=== PATIENT | female | born 1930 | race Caucasian/White ===

== ENCOUNTER 2016-08-07 09:44 | Emergency (ER) | payer MEDICARE, OTHER ==
[~2016-08-07] VITALS: Ht 167.6 cm; Wt 56.4 kg
[~2016-08-07 09:44] MED LIST: CA C1TAB77 PO; COZ25 PO; DIGO125T PO; DSS100 PO; FURO40TA PO; K20 PO; LOM PO; MVI PO; TOPR25T PO; WARF6TAB2 PO
[2016-08-07 09:50] VITALS: BP 97/61; PULSE 85; RESP 10; O2SAT 87
--- NOTE | 2016-08-07 10:02 | ED.REPORT ---
HPI-Chest Pain 40 and Over Date of Service Aug 07, 2016 ED Provider: Homer Shelby MD An 85 year old female with a history of hypotension, hyperlipidemia, COPD, sleep apnea, squamous cell carcinoma, and CHF s/p pacemaker placement presents to the ED accompanied by her daughter with chest pain onset 0400 this morning. The pain lasted 5 minutes with radiation down her left arm and returned for less than five minutes at 0600. She also reports chills and SOB with exertion this morning. The patient was ill with a cough, fever, congestion, and sore throat last week and was placed on cephalexin and prednisone which relieved her symptoms. The patient denies diaphoresis, headache, abdominal pain, nausea, vomiting, diarrhea, or fever in the last three days. Her heart catheterization test in November 2012 visualized no obstructive disease. Nursing Notes Stated Complaint: CHEST PAIN/SOB Chief Complaint: Chest Pain Nursing Notes Reviewed: Yes Allergies: Coded Allergies: shellfish derived (Verified Allergy, Unknown, anaphylaxis, 08/07/16) enalapril (Verified Adverse Reaction, Mild, Cough, 07/17/13) Scheduled Ca Carb/Vit D3/Mag Ox/Zn Oxide (Sonido Mag Zinc + D3 Tablet) 1 Each Tablet 1 EACH PO DAILY Digoxin-Expunged Drug, Do Not Renew! (Digoxin-Expunged Drug, Do Not Renew!) 125 Mcg Tablet 125 MCG PO Q48 DECREASED DOSE Diphenoxylate/Atr-Expunged, Do Not Renew! (Diphenoxylate/Atr-Expunged, Do Not Renew!) 2.5 Mg Tablet 2.5 MG PO PRN Docusate Sod-Expunged Drug, Do Not Renew! (Docusate Sod-Expunged Drug, Do Not Renew!) 100 Mg Capsule 100 MG PO DAILY Furosemide-Expunged Drug, Do Not Renew! (Lasix-Expunged Drug, Do Not Renew!) 40 Mg Tablet 40 MG PO BID Losartan-Expunged Drug, Do Not Renew! (Losartan-Expunged Drug, Do Not Renew!) 25 Mg Tablet 25 MG PO DAILY Metoprolol Suc-Expunged Drug, Do Not Renew! (Metoprolol Suc-Expunged Drug, Do Not Renew!) 25 Mg Tber 25 MG PO DAILY Potassium Chl-Expunged Drug, Do Not Renew! (P-HAL-Jwqmyaiz Drug, Do Not Renew!) 20 Meq Tabsr 20 MEQ PO BIDWM GIVE WITH FOOD Therapeutic Multivit/Minerals-Expunged Drug, (Therapeutic Multivit/Minerals- Expunged Drug,) 1 Ea Tab 1 TAB PO DAILY Warfarin Sodium Inactive Drug Do Not Use (Coumadin Inactive Drug Do Not Use) 6 Mg Tablet 6 MG PO DAILY 1700 (5 PM) DAILY General Time Seen by MD: 10:01 Chief Complaint Chest pain Hx Obtained From: Patient, Daughter Arrived By: Walk-in Sudden in Onset?: Yes Onset Occurred: 5 - 8 hours ago Symptom Duration: 1 - 15 minutes Location: : Chest left: Chest right Quality: Painful Radiation: : Arm left Severity: Current: Moderate Severity: Maximum: Moderate Associated with: Reports: Cough, non-productive, Recent viral symptoms, Shortness of Breath, Denies: Fever, Nausea, Vomiting Pertinent Negative: Relieved by nothing Context Related History: Reports: Congestive heart failure Recent Healthcare: No recent doctor visit Similar Sx Previous: Yes Past Medical History Past Medical History CHF Atrial fibrillation on Warfarin Hypotension Hyperlipidemia Mild COPD Sleep apnea Squamous cell carcinoma Past Surgical History Pacemaker placement Smoking History Unknown if Ever Smoker Social History Other Social History: Good social support Ambulatory Status Independent Review of Systems Constitutional: Reports: Chills, Denies: Fever Respiratory: Reports: Non-productive cough (resolved), Shortness of breath Cardiovascular: Reports: Chest pain GI: Denies: Abdominal pain, Diarrhea, Nausea, Vomiting Skin: Denies Diaphoresis Neurologic: Denies: Headache Complete sys rev & neg: except as marked. Ears / Nose / Throat: Reports: Nasal congestion (resolved), Sore throat ( resolved) Physical Exam Initial Vital Signs Vital Signs (First) Date Time Temp Pulse Resp B/P Pulse Ox O2 Delivery O2 Flow Rate FiO2 08/07/16 09:50 36.2 85 10 97/61 87 Room Air Head / Eyes: Atraumatic, Normocephalic ENT: Conjunctiva normal, No scleral icterus Neck: Supple, Full range of motion Skin: Warm, Dry, No cyanosis Neurologic: Alert, Oriented, Nonfocal Psychiatric: Mood/affect normal, Behavior normal, Normal thought content General/Constitutional: Awake, Alert, No acute distress Respiratory / Chest: Breath sounds NL, Breath sounds = bilat, No respiratory distress Cardiovascular: Regular rhythm, Heart sounds NL Heart Rate / Rhythm: Positive: Bradycardia Lower Ext Edema: Positive: Bilateral 2+ Interpretation & Diagnostics Lab Results Interpretation Result Diagram: 08/07/16 1050 08/07/16 1050 Test 08/07/16 10:50 08/07/16 11:00 White Blood Count 8.3th/mm3 (3.8-10.1) Red Blood Count 4.31mil/mm3 (3.90-5.20) Hemoglobin 13.3g/dL (12.0-15.6) Hematocrit 40.9% (35.0-46.0) Mean Corpuscular Volume 94.9fL (81-100) Mean Corpuscular Hemoglobin 30.9pg (27.0-35.0) Mean Corpuscular Hemoglobin Concent 32.5% (32.0-37.0) Red Cell Distribution Width 14.5% (12.3-15.4) Platelet Count 167bil/L (150-400) Neutrophils (%) (Auto) 79.9% (40-74) Lymphocytes (%) (Auto) 11.6% (14-46) Monocytes (%) (Auto) 7.4% (4-12) Eosinophils (%) (Auto) 0.4% (0-5) Basophils (%) (Auto) 0.5% (0-3) Sodium Level 140mEq/L (134-144) Potassium Level 4.3mEq/L (3.5-5.2) Chloride Level 97mEq/L (97-108) Carbon Dioxide Level 26mmol/L (18-29) Blood Urea Nitrogen 30mg/dL (8-27) Creatinine 1.33mg/dL (0.57-1.00) Estimat Glomerular Filtration Rate 55mL/min (>59) Glucose Level 116mg/dL (60-99) Calcium Level 10.5mg/dL (8.5-10.1) Magnesium Level 2.3mg/dL (1.6-2.6) Total Bilirubin 1.5mg/dL (0.0-1.2) Aspartate Amino Transf (AST/SGOT) 30U/L (0-50) Alanine Aminotransferase (ALT/SGPT) 25U/L (0-32) Alkaline Phosphatase 102U/L (25-165) Troponin T 0.042ug/L (0.0-0.011) Pro-B-Type Natriuretic Peptide 80469jv/mL (0-738) Total Protein 7.4g/dL (6.4-8.4) Albumin 4.0g/dL (3.4-5.0) Hold Urine Received (Received) ECG Interpretation ECG Interpretation: Afib/flut and V-paced complexes rate 68 Nonspecific IVCD with LAD LVH with secondary repolarization abnormality Time: 10:33 Interpreted by: ED physician X-Ray Chest Interpretation Chest Xray Interpretation: IMPRESSION: 1. Prominent cardiomegaly redemonstrated. 2. Hyperinflation of the lungs suggestive of COPD. Recommend correlation clinically. No acute consolidation. Dictated by: Juan Ortiz M.D. on 08/07/2016 at 10:38 View: Portable, 1 view Interpretation / Wet Read by: Interpret - Radiologist Re-Eval/Medical Decision Source of Hx: Old records Time of Eval: 11:49 Patient Status: Condition improved Re-Evaluation/Progress Note: Discussed with patient and her daughter x-ray and lab results, diagnosis, and plan for discharge. Follow-up and return to the ER instructions given. Patient agrees with plan for care and all questions were addressed. Consultation : Referral / Consult Name: Saba De Guzman MD Consulted With: Cardiology Call Returned at: 11:44 Transport Medic: Will see in office Note: Dr. De Guzman suggests increasing torsemide from 30 mg daily to 40 mg daily but when I talked to the patient she said that she was only in fact taking 20 mg daily so I instructed her to increase it to [address] De Guzman will make arrangements for the patient to be seen in the clinic on the . Counseled Regarding: Diagnosis, Lab results, Need for follow-up, When/why to return to ED Discharge & Departure Primary Impression: Chest pain Chest pain type: unspecified Qualified Code: R07.9 - Chest pain, unspecified Additional Impression: CONGESTIVE HEART FAILURE NOS Disposition: Home Discharge Condition All VS Reviewed: Yes Condition: Stable Patient Instructions: Chest Pain (ED), Congestive Heart Failure (ED) Additional Instructions: Thank you for entrusting us with your care. Your exam today was reassuring. Increase your torsemide from 1 tablet daily (20 mg) to 1-1/2 tablets daily (30 mg). You have an appointment with Dr. De Guzman August 12 and her office will call you about this to let you know the specific time. Return to the ER with any new or worsening symptoms. Referrals: Kurtis Brand MD (PCP) Saba De Guzman MD Attestation Portions of this note were transcribed by Aura Morales. I, Dr. Shelby, personally performed the history, physical exam, and medical decision-making; I reviewed and confirmed the accuracy of the information in the transcribed note. Signed by: David Mckenna, 08/07/2016, 12:42 copies to: Kurtis Brand MD; Saba De Guzman MD, Kirk H MD Aug 07, 2016 10:02 AURA MORALES Aug 07, 2016 10:21
--- NOTE | 2016-08-07 10:39 | DRSVH ---
PROCEDURE: X-RAY CHEST ONE VIEW, PORTABLE ([id number]) INDICATIONS: Chest pain TECHNIQUE: One view of the chest was acquired. COMPARISON: [facility], XR CHEST 2VW, 12/19/2015, 17:36. [facility], CR, CHES T 1VW (PORTABLE), 05/08/2013, 14:08. FINDINGS: Surgical changes and devices: Left chest wall single lead AICD appears stable in position. Lungs and pleura: No pleural effusions or pneumothorax. Lungs are clear. There is hyperinflation o f the lungs redemonstrated. Mediastinum: Mediastinal contours appear unchanged. Heart size is prominently enlarged. Bones and chest wall: No suspicious bony lesions. Overlying soft tissues appear unremarkable. IMPRESSION: 1. Prominent cardiomegaly redemonstrated. 2. Hyperinflation of the lungs suggestive of COPD. Recommend correlation clinically. No acute cons olidation. Dictated by: Juan Ortiz M.D. on 08/07/2016 at 10:38 Approved by: Juan Ortiz M.D. on 08/07/2016 at 10:38
[2016-08-07 11:06] LABS: BASOPHILS % (AUTO) 0.5 % (0-3); EOSINOPHILS % (AUTO) 0.4 % (0-5); MONOCYTES % (AUTO) 7.4 % (4-12); Mean Corpuscular Hemoglobin 30.9 pg (27.0-35.0); Mean Corpuscular Volume 94.9 fL (81-100); NEUTROPHILS % (AUTO) 79.9 % (40-74); Platelet Count 167 bil/L (150-400)
[2016-08-07 11:37] LABS: Magnesium 2.3 mg/dL (1.6-2.6)
[2016-08-07 11:40] LABS: TROPONIN T 0.042 ug/L (0.0-0.011)
[2016-08-07 12:27] VITALS: BP 116/72; PULSE 78; RESP 16
[2016-08-26] MEDS ORDERED: TORS20TA3 PO (18:19)
[2016-08-26] MEDS ORDERED: [UNRECOGNIZED DRUG - CODE] PO (18:31)
[2016-08-26] MEDS ORDERED: WARF1TAB6 PO ×2 (18:31)
[2016-08-26] MEDS ORDERED: CHLORELLA PO (18:31)
[2016-08-26] MEDS ORDERED: METH850P PO (18:31)
[2016-08-26] MEDS ORDERED: CARB15DR74 OP (18:31)
[2016-08-26] MEDS ORDERED: NEBI2.5T5 PO (18:31)
[2016-08-26] MEDS ORDERED: CALC500T9 PO (18:31)
[2016-08-26] MEDS ORDERED: DIGO125T73 PO (18:33)
[2016-08-26] MEDS ORDERED: MULT-1018 PO (18:33)
== END 2016-08-07 12:29 | disposition home or self-care (01) ==
LOC: SED 09:44
DX: I50.9 Heart failure, unspecified (principal); R07.9 Chest pain, unspecified; I95.89 Other hypotension; E78.5 Hyperlipidemia, unspecified; Z95.0 Presence of cardiac pacemaker; Z85.89 Personal history of malignant neoplasm of other organs and systems; Z79.01 Long term (current) use of anticoagulants; Z88.8 Allergy status to other drugs, medicaments and biological substances; Z91.013 Allergy to seafood

== ENCOUNTER 2016-08-27 00:15 | Day surgery (SDC) | payer MEDICARE, OTHER ==
[~2016-08-27] VITALS: Ht 165.1 cm; Wt 54.5 kg
[~2016-08-27 00:15] MED LIST changes: -CA C1TAB77 PO; +CALC500T9 PO; +CARB15DR74 OP; +CHLORELLA PO; -COZ25 PO; -DIGO125T PO; +DIGO125T73 PO; -DSS100 PO; -FURO40TA PO; -K20 PO; -LOM PO; +METH850P PO; +MULT-1018 PO; -MVI PO; +NEBI2.5T5 PO; -TOPR25T PO; +TORS20TA3 PO; +WARF1TAB6 PO; -WARF6TAB2 PO; +[UNRECOGNIZED DRUG - CODE] PO
[2016-08-27] MEDS ORDERED: Vancomycin Inj 1,000 MG in IV Premix 1 EACH IV SCH (07:15)
[2016-08-27 11:06] LABS: BASOPHILS % (AUTO) 0.4 % (0-3); EOSINOPHILS % (AUTO) 2.5 % (0-5); MONOCYTES % (AUTO) 8.7 % (4-12); Mean Corpuscular Hemoglobin 30.6 pg (27.0-35.0); Mean Corpuscular Volume 94.7 fL (81-100); Platelet Count 179 bil/L (150-400)
[2016-08-27 11:07] VITALS: BP 101/65; PULSE 64; RESP 12; O2SAT 98
[2016-08-27 11:25] LABS: INR 2.13 ratio
--- NOTE | 2016-08-27 12:02 | NUR ---
GRACIE Patient admitted to [facility] at 1030 for existing ICD lead. Daughter at bedside. Patient denies pain. HL X 2 placed and labs sent. Consent in chart and verified. History and medications reviewed. Pre-procedure teaching done and questions answered.
[2016-08-27 14:00] VITALS: BP 107/59; PULSE 61; RESP 12; O2SAT 96
[2016-08-27 14:15] VITALS: BP 101/55; PULSE 58; RESP 16; O2SAT 95
[2016-08-27] MEDS ORDERED: Potassium Chloride 20 mEq SR Tablet ONE ×2 (14:15→14:21)
[2016-08-27] MEDS ORDERED: Potassium Chloride 20 mEq SR Tablet PO ONE (14:25)
[2016-08-27 14:30] VITALS: BP 104/55; PULSE 61; RESP 16; O2SAT 98
--- NOTE | 2016-08-27 15:29 | NUR ---
[facility] Patient to microbiological laboratory technician and venogram determined unable to complete procedure. No sedation given. Return to [facility] at 1400. Daughter at bedside. Patient ate lunch and 40meq KCL PO administered pr MD order. Discharge instructions reviewed with patient and daughter, written information given and questions answered. Home with daughter at 1530.
== END 2016-08-27 23:59 ==
LOC: SOUO 00:15
PROVIDERS: ATTEND Internal Medicine Cardiovascular Disease
DX: I42.0 Dilated cardiomyopathy (principal); Z53.9 Procedure and treatment not carried out, unspecified reason; Z79.01 Long term (current) use of anticoagulants; I48.2 Chronic atrial fibrillation; Z95.810 Presence of automatic (implantable) cardiac defibrillator; I44.7 Left bundle-branch block, unspecified
CPT/HCPCS: 36005; 36415; 75820; 80048; 85025; 85610; Q9967

== ENCOUNTER 2016-09-21 17:23 | Inpatient (IN) | payer MEDICARE, OTHER ==
[~2016-09-21] VITALS: Ht 162.6 cm; Wt 60.4 kg
[2016-09-21 17:46] VITALS: BP 96/55; PULSE 70; RESP 18; O2SAT 92
--- NOTE | 2016-09-21 18:09 | ED.REPORT ---
HPI-General Illness Date of Service Sep 21, 2016 ED Provider: Dr. Larry Russell M.D. An 85 year old female with a history of CHF, hypotension, hyperlipidemia, mild COPD, sleep apnea, squamous cell carcinoma, and atrial fibrillation on Warfarin s/p pacemaker ICD placement presents to the ED with worsened bilateral leg edema onset one month ago. The patient also reports intermittent shortness of breath and insomnia. She also developed a cough one month ago and was seen by her PCP who placed her on prednisone, with no relief. The patient has an upcoming appointment for subclavian venoplasty to enable addition of a subsequent pacer. Nursing Notes Stated Complaint: CONGESTIVE HEART FAILURE Chief Complaint: General Complaint Nursing Notes Reviewed: Yes Allergies: Coded Allergies: lisinopril (Verified Allergy, Severe, 09/21/16) iodine (Verified Allergy, Unknown, 09/21/16) shellfish derived (Verified Allergy, Unknown, anaphylaxis, 09/21/16) enalapril (Verified Adverse Reaction, Mild, Cough, 09/21/16) Scheduled Calcium Carbonate (Tums) 500 Mg Tab.chew 250 MG PO DAILY Digoxin (Digoxin) 125 Mcg Tablet 125 MCG PO QPM Multivitamin (Multi Vitamin Daily) 1 Each Tablet 1 EACH PO DAILY Nebivolol (Bystolic) 2.5 Mg Tablet 2.5 MG PO DAILY Torsemide (Torsemide) 20 Mg Tablet 40 MG PO DAILY Warfarin Sodium (Warfarin Sodium) 1 Mg Tablet 4.5 MG PO Wednesday & Wednesday Warfarin Sodium (Warfarin Sodium) 1 Mg Tablet 4 MG PO DAILY except Wednesday & Wednesday Scheduled PRN Ammonium Lactate (Ammonium Lactate) 140 Gm Cream..g. 1 APPLIC TOPICAL DAILY PRN PRN skin dryness Carboxymethylcellulose Sodium (Refresh Tears) 15 Ml Drops 15 ML OP Q2H PRN PRN dry eyes Diclofenac Gel (Diclofenac Gel) 100 Gm Tube 2 APPLIC TOPICAL QID PRN PRN arthritis To jaw for lock jaw Levalbuterol Tartrate (Levalbuterol Tartrate Hfa) 45 Mcg/Actuation Hfa.aer.ad 2 PUFFS IH Q4H PRN PRN For Shortness of Breath Methylcellulose (with Sugar) (Citrucel Powder) 850 Gm Powder 850 GM PO DAILY PRN PRN For Constipation General Time Seen by MD: 18:09 Chief Complaint Other (Bilateral Leg Edema ) Hx Obtained From: Patient Arrived By: Walk-in Onset Occurred: More than a week ago... (1 month) Symptom Duration: Since onset Severity: Current: No pain currently Severity: Maximum: No pain Associated with: Reports: Cough, Shortness of breath Pertinent Negative: Relieved by nothing Context Related History: Reports COPD, Reports Cancer Recent Healthcare: Recent doctor visit Similar Sx Previous: Yes Past Medical History Past Medical History CHF Atrial fibrillation on Warfarin Hypotension Hyperlipidemia Mild COPD Sleep apnea Squamous cell carcinoma Past Surgical History Pacemaker and ICD placement Smoking History Unknown if Ever Smoker Social History Other Social History: Good social support Ambulatory Status Independent Review of Systems Full Review of Systems Respiratory: Reports: Non-productive cough, Shortness of breath GI: Denies: Diarrhea, Vomiting Musculoskeletal: Reports: Extremity swelling (Bilateral legs ) Psychiatric: Reports: Insomnia Complete sys rev & neg: except as marked. Physical Exam Vital Signs Vital Signs Date Time Temp Pulse Resp B/P Pulse Ox O2 Delivery O2 Flow Rate FiO2 09/21/16 17:46 36.0 70 18 96/55 92 Room Air Initial VS: Reviewed Head / Eyes: Atraumatic Respiratory: Breath sounds normal, Clear to auscultation, No respiratory distress Abdomen / GI: Soft, Non-tender Skin: Warm, Dry Neurologic: Alert, Oriented, Nonfocal Psychiatric: Mood/affect normal, Behavior normal, Normal thought content General/Constitutional: Awake, Alert, No acute distress Distress / Hydration: Positive: Dehydration mild Skin dusky ENT: Airway patent Mouth: Positive: Mucous membranes dry Cardiovascular: Heart rate NL, Regular rhythm Heart Sounds / Murmur: Positive: Heart sounds diminished Lower Ext Edema: Positive: Bilateral 2+ Legs in compression garments bilaterally Interpretation & Diagnostics Lab Results Interpretation Result Diagram: 09/21/16 1810 09/22/16 0230 Test 09/21/16 18:10 09/21/16 19:24 White Blood Count 6.5th/mm3 (3.8-10.1) Red Blood Count 5.30mil/mm3 (3.90-5.20) Hemoglobin 15.6g/dL (12.0-15.6) Hematocrit 46.2% (35.0-46.0) Mean Corpuscular Volume 87.2fL (81-100) Mean Corpuscular Hemoglobin 29.4pg (27.0-35.0) Mean Corpuscular Hemoglobin Concent 33.8% (32.0-37.0) Red Cell Distribution Width 15.7% (12.3-15.4) Platelet Count 185bil/L (150-400) Neutrophils (%) (Auto) 71.4% (40-74) Lymphocytes (%) (Auto) 16.2% (14-46) Monocytes (%) (Auto) 9.7% (4-12) Eosinophils (%) (Auto) 2.0% (0-5) Basophils (%) (Auto) 0.5% (0-3) Prothrombin Time > 120.0sec (8.1-12.5) Prothromb Time International Ratio > 10.00ratio Total Bilirubin 3.3mg/dL (0.0-1.2) Aspartate Amino Transf (AST/SGOT) 81U/L (0-50) Alanine Aminotransferase (ALT/SGPT) 121U/L (0-32) Alkaline Phosphatase 114U/L (25-165) Pro-B-Type Natriuretic Peptide 74330dp/mL (0-738) Total Protein 6.9g/dL (6.4-8.4) Albumin 3.9g/dL (3.4-5.0) Thyroid Stimulating Hormone (TSH) 11.890uIU/mL (0.450-4.500) Hold Mckeon Top Tube Received (Received) Urine Color Yellow (YELLOW) Urine Appearance Clear (CLEAR,HAZY) Urine pH 5.0 (5.0-8.0) Urine Specific [place] 1.025 (1.003-1.035) Urine Protein Negativemg/dL (NEG,TRACE) Urine Glucose (UA) Negativemg/dL (NEGATIVE) Urine Ketones Negativemg/dL (NEGATIVE) Urine Occult Blood Negative (NEGATIVE) Urine Nitrite Negative (NEGATIVE) Urine Bilirubin Negative (NEGATIVE) Urine Urobilinogen Normalmg/dL (NORMAL) Urine Leukocyte Esterase Negative (NEGATIVE) Urine RBC 0-2/hpf (0-2) Urine WBC 0-5/hpf (0-5) Urine Epithelial Cells None/hpf (NONE-MOD) Urine Crystals None seen (NONE SEEN) Urine Bacteria Few/hpf (NONE-FEW) Urine Hyaline Casts None/lpf (NONE) Urine Granular Casts None seen (NONE SEEN) Urine Waxy Casts None seen (NONE SEEN) Urine Red Blood Cell Casts None seen (NONE SEEN) Urine White Blood Cell Casts None seen (NONE SEEN) Urine Mucus None seen (None Seen) Urine Trichomonas None seen (NONE SEEN) Urine Yeast None (NONE SEEN) Urinalysis Comment None Urine Culture Reflexed Not indicated ECG Interpretation ECG Interpretation: Afib/flut and V-paced complexes rate 60 Time: 19:24 Interpreted by: ED physician X-Ray Chest Interpretation Chest Xray Interpretation: IMPRESSION: Small left pleural effusion with adjacent atelectasis. Cardiomegaly Dictated by: Nolberto Campbell M.D. on 09/21/2016 at 19:45 View: Portable, 1 view Interpretation / Wet Read by: Interpret - Radiologist Re-Eval/Medical Decision Med Decision/Clinical Course 85-year-old with severe cardiomyopathy presents with increasing edema and shortness of breath. She was referred by her tree topper for admission. Plan is to see what can be done about her progressive failure, and consider about the insertion of her second pacemaker wire to allow AV sequential pacing. She is central volume dry at this point, with moderate edema of her thighs. She is unlikely to tolerate much diuresis. Discussed with Dr. Dawn, who will see her this morning. Source of Hx: Old records Time of Eval: 18:30 Patient Status: Condition improved Re-Evaluation/Progress Note: Discussed with patient and her x-ray and lab results, diagnosis, and plan for admit. Patient agrees with plan for care and all questions were addressed. Consultation #1: Referral / Consult Name: Jordi Reagan MD Consulted With: Hospitalist Call Returned at: 19:06 Transmission Repairer: Agrees with eval, Agrees with plan, Accepts admit Consultation #2: Referral / Consult Name: Zen Dawn MD Consulted With: Cardiology Call Returned at: 20:53 Transmission Repairer: Agrees with eval, Agrees with plan Counseled Regarding: Diagnosis, Lab results, Need for admission Discharge & Departure Primary Impression: CHF (congestive heart failure) Congestive heart failure type: unspecified congestive heart failure type Congestive heart failure chronicity: unspecified congestive heart failure chronicity Qualified Code: I50.9 - Heart failure, unspecified Additional Impression: Cardiomyopathy Disposition: ADMITTED TO HOSPITAL Discharge Condition All VS Reviewed: Yes Condition: Improved Referrals: Kurtis Brand MD (PCP) Zen Dawn MD, Yelena K MD Scribe Attestation Portions of this note were transcribed by Aura Morales. Dr. Drew Thomas, personally performed the history, physical exam, and medical decision-making; I reviewed and confirmed the accuracy of the information in the transcribed note. Signed by: David Mckenna, 09/22/2016, 02:50 copies to: Zen Dawn MD; Kurtis Brand MD; Saba De Guzman MD, Christopher W MD Sep 21, 2016 18:09 AURA MORALES Sep 21, 2016 18:21 Referral / Consult Name: Zen Dawn MD Consulted With: Cardiology Call Returned at: 20:53 Transmission Repairer: Agrees with eval, Agrees with plan Counseled Regarding: Diagnosis, Lab results, Need for admission Discharge & Departure Primary Impression: CHF (congestive heart failure) Congestive heart failure type: unspecified congestive heart failure type Congestive heart failure chronicity: unspecified congestive heart failure chronicity Qualified Code: I50.9 - Heart failure, unspecified Additional Impression: Cardiomyopathy Disposition: ADMITTED TO HOSPITAL Discharge Condition All VS Reviewed: Yes Condition: Improved Referrals: Kurtis Brand MD (PCP) Zen Dawn MD, Yelena K MD Scribe Attestation Portions of this note were transcribed by Aura Morales. Dr. Drew Thomas, personally performed the history, physical exam, and medical decision-making; I reviewed and confirmed the accuracy of the information in the transcribed note. Signed by: David Mckenna, 09/22/2016, 02:50 copies to: Zen Dawn MD; Kurtis Brand MD; Saba De Guzman MD, Christopher W MD Sep 21, 2016 18:09 AURA MORALES Sep 21, 2016 18:21
[2016-09-21 18:42] LABS: BASOPHILS % (AUTO) 0.5 % (0-3); MONOCYTES % (AUTO) 9.7 % (4-12); Mean Corpuscular Hemoglobin 29.4 pg (27.0-35.0); Mean Corpuscular Volume 87.2 fL (81-100); NEUTROPHILS % (AUTO) 71.4 % (40-74); Platelet Count 185 bil/L (150-400)
[2016-09-21 19:02] LABS: TROPONIN T 0.16 ug/L (0.0-0.011)
[2016-09-21] MEDS ORDERED: Senna-Docusate 8.6-50 mg Tablet PO PRN (19:20)
[2016-09-21] MEDS ORDERED: Ondansetron 2 mg/mL 2 mL Inj IVPUSH PRN (19:20)
[2016-09-21] MEDS ORDERED: Polyethylene Glycol (PEG) 17 Gm Powder PO PRN (19:20)
[2016-09-21] MEDS ORDERED: Alum-Mag Hydrox-Simeth 30 mL Suspension PO PRN (19:20)
--- NOTE | 2016-09-21 19:48 | DRSVH ---
PROCEDURE: X-RAY CHEST ONE VIEW, PORTABLE ([id number]) INDICATIONS: chf TECHNIQUE: One view of the chest was acquired. COMPARISON: [facility], CR, XR CHEST 1VW (PORTABLE), 08/07/2016, 10:24. FINDINGS: Surgical changes and devices: Cardiac AICD as before Lungs and pleura: Blunting of the left costophrenic angle, possible small pleural effusion with adjac ent atelectasis. No definite pulmonary edema Mediastinum: Cardiomegaly as before Bones and chest wall: No suspicious bony lesions. Overlying soft tissues appear unremarkable. Bila teral shoulder joint degeneration IMPRESSION: Small left pleural effusion with adjacent atelectasis. Cardiomegaly Dictated by: Nolberto Campbell M.D. on 09/21/2016 at 19:45 Approved by: Nolberto Campbell M.D. on 09/21/2016 at 19:46
[2016-09-21 20:03] LABS: APPEARANCE,URINE CLEAR (CLEAR,HAZY); COLOR,URINE YELLOW (YELLOW); OCCULT BLOOD,URINE NEGATIVE (NEGATIVE); UROBILINOGEN,URINE NORMAL (NORMAL)
[2016-09-21 20:06] VITALS: BP 101/52; PULSE 70; RESP 20; O2SAT 95
[2016-09-21 20:30] VITALS: BP 121/69; PULSE 88; RESP 20; O2SAT 97
[2016-09-21] MEDS ORDERED: DICL100G26 TOPICAL (20:35)
[2016-09-21] MEDS ORDERED: LEVA15HF6 IH (20:37)
[2016-09-21] MEDS ORDERED: AMMO385C5 TOPICAL (20:38)
[2016-09-21 20:51] VITALS: PULSE 70
[2016-09-21 21:14] LABS: INR > 10.00 ratio
[2016-09-21] MEDS: Furosemide 10 mg/mL 4 mL Inj IVPUSH SCH (21:39)
--- NOTE | 2016-09-21 22:10 | PCM.HPMED ---
Subjective Date of Service Sep 21, 2016 Primary Provider: Admitting Physician: Jordi Reagan MD Primary Care Physician: Kurtis Brand MD Attending Physician: Jordi Reagan MD Chief Complaint: Shortness of breath and increased swelling History of Present Illness: Lexie Hernandez is a pleasant 85 year old female with a history of HFrEF, atrial fibrillation/flutter on Warfarin s/p single lead pacemaker ICD placement who presents to the ED with worsening bilateral leg edema and increased shortness of breath and fatigue for the last week to 2 weeks. Her daughter does most of the talking, and provides much of the history. She developed a dry cough about one month ago and was reportedly seen by her PCP who placed her on prednisone, with no relief. The daughter reports that her cough became more wet, and they returned to see her provider at which time she reports being told that the patient was dehydrated and needed more fluids. She called the patient's professor of marketing to discuss this recommendation, and reports being told that she should not drink more fluids, and advised her to present to the ER. She has over the last month or so been visiting with cardiology with ongoing discussions regarding upgrade versus turning off her pacemaker/ICD. The daughter reports that cardiology has the patient tentatively scheduled for procedure (to add an additional pacer lead) on this Wednesday. However, with her ongoing symptoms and some thoughts on the side of the patient regarding changing her CODE STATUS to DNR/DNI, cardiology will visit with them tomorrow morning while she is here in the hospital to discuss the patient's goals moving forward. Lexie reports feeling tired all the time, and wanting to just sleep all day long. She reports that approximately one year ago she was able to walk several times around a block, but now notes that she is not able to go more than several feet without feeling winded. She denies pains with the exception of bilateral knee pain when she is up and moving about (this is noted to be long- standing arthritis). Prior to one or 2 weeks ago she was living alone and fully independent. Over the last week or so her daughter has been her near constant caregiver. They report compliance with all medications and physician recommendations. Denies sick contacts (with regards to the cough, it has not been associated with any fevers/chills, purulent sputum, pleuritic pain). No recent travel, but please note that the patient was recently (within the last several years) living in [place] in the [place] area. Patient is admitted under inpatient status with expected length of stay greater than 2 midnights due to severity of presenting symptoms, risk of adverse event, and complexity of treatment plan. Review of Systems: Comprehensive review of systems conducted and was negative except for the pertinent positives listed in history of present illness above. Allergies Coded Allergies: lisinopril (Verified Allergy, Severe, 09/21/16) iodine (Verified Allergy, Unknown, 09/21/16) shellfish derived (Verified Allergy, Unknown, anaphylaxis, 09/21/16) enalapril (Verified Adverse Reaction, Mild, Cough, 09/21/16) Home Medications From [facility] completed: Lexie Hernandez [id number] 08/13/2016 04:00 PM 07/31 Bystolic 2.5 mg tablet take 1 tablet by oral route every day Chlorella powder Tablets 7 tablets daily Citrucel oral powder 1 time daily Col-Rite 100 mg capsule take 1 capsule by oral route every day at bedtime as needed digoxin 125 mcg tablet take 1 tablet by oral route every day Multivitamins 1 tablet by mouth daily Refresh Tears 0.5 % eye drops torsemide 20 mg tablet take 2 tablets by oral route every day Tums 200 mg calcium (500 mg) chewable tablet as needed warfarin 1 mg tablet take 4.5mg on Wednesday's and Fridays and 4mg tablets all other days PMH 1. Nonischemic cardiomyopathy * Status post pacemaker/ICD * Echo 03/2016 shows EF 15-20%, mild to moderate MR, mild AR, mild TR 2. Degenerative joint disease of the right knee and hands. 3. Endometrial cancer treated with hysterectomy in 2000. She says she had recurrence, and was treated with radiation and some type of pelvic procedure in 2003. PRIOR SURGERIES: 1. Hysterectomy in 2000. 2. Appendectomy. 3. Tonsillectomy. 4. Cataract surgery. 5. Carpal tunnel surgery. 6. Single lead pacemaker/ICD placement FAMILY HISTORY: Father of a heart attack at age 68, and had type 2 diabetes. Her mother at 91 of a heart attack. SOCIAL HISTORY: She has not drunk alcohol since 1983. She has been a since 2008. 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 External ears normal. Eyes: PERRL, EOMI. Anicteric sclerae, but there is a pigmentation abnormality noted in the partial ringlike structure around bilateral irises. Conjunctiva are not injected Mouth: Mouth Normal, Mucous Membranes somewhat dry Neck: Neck supple with full range of motion. No Thyromegaly. Chest & Lungs: Clear to auscultation bilaterally with minimal crackles appreciated in the left lower base, but no wheezes, or rhonchi. We will occasionally purse her lips during expiration for several breaths, but otherwise somewhat normal respiratory effort. Cardiovascular: Regular Rate, Normal S1, Normal S2, holosystolic murmur appreciated without appreciable radiation on exam (somewhat difficult here). Radial and posterior tibial pulses are 2+ bilaterally. No carotid bruit appreciated. Abdomen: Mild discomfort noted on palpation of the right abdomen/especially the right upper quadrant, Non-distended, No masses, Normoactive bowel tones, Soft Musculoskeletal: Tenderness in the right knee without inflammation or erythema. Extremities: Significant, moderate pitting edema noted from the level of the feet up to the abdomen bilaterally. Skin: No rash appreciated. She has areas of excoriation over the bilateral forearms in the left upper arm (she is scratching the left upper arm throughout the interview). Scattered ecchymoses over the bilateral arms. Neurological: Grossly Neurologically Intact Psych: Normal mood and affect. Thought process and content intact. Lab and Diagnostics Labs Laboratory Tests 72 Hours Test 09/21/16 18:10 09/21/16 19:24 White Blood Count 6.5th/mm3 (3.8-10.1) Red Blood Count 5.30mil/mm3 (3.90-5.20) Hemoglobin 15.6g/dL (12.0-15.6) Hematocrit 46.2% (35.0-46.0) Mean Corpuscular Volume 87.2fL (81-100) Mean Corpuscular Hemoglobin 29.4pg (27.0-35.0) Mean Corpuscular Hemoglobin Concent 33.8% (32.0-37.0) Red Cell Distribution Width 15.7% (12.3-15.4) Platelet Count 185bil/L (150-400) Neutrophils (%) (Auto) 71.4% (40-74) Lymphocytes (%) (Auto) 16.2% (14-46) Monocytes (%) (Auto) 9.7% (4-12) Eosinophils (%) (Auto) 2.0% (0-5) Basophils (%) (Auto) 0.5% (0-3) Prothrombin Time > 120.0sec (8.1-12.5) Prothromb Time International Ratio > 10.00ratio Sodium Level 132mEq/L (134-144) Potassium Level 3.5mEq/L (3.5-5.2) Chloride Level 90mEq/L (97-108) Carbon Dioxide Level 23mmol/L (18-29) Blood Urea Nitrogen 76mg/dL (8-27) Creatinine 2.33mg/dL (0.57-1.00) Estimat Glomerular Filtration Rate 29mL/min (>59) Glucose Level 119mg/dL (60-99) Calcium Level 10.1mg/dL (8.5-10.1) Total Bilirubin 3.3mg/dL (0.0-1.2) Aspartate Amino Transf (AST/SGOT) 81U/L (0-50) Alanine Aminotransferase (ALT/SGPT) 121U/L (0-32) Alkaline Phosphatase 114U/L (25-165) Troponin T 0.160ug/L (0.0-0.011) Pro-B-Type Natriuretic Peptide 19868fx/mL (0-738) Total Protein 6.9g/dL (6.4-8.4) Albumin 3.9g/dL (3.4-5.0) Thyroid Stimulating Hormone (TSH) 11.890uIU/mL (0.450-4.500) Hold Mckeon Top Tube Received (Received) Urine Color Yellow (YELLOW) Urine Appearance Clear (CLEAR,HAZY) Urine pH 5.0 (5.0-8.0) Urine Specific [place] 1.025 (1.003-1.035) Urine Protein Negativemg/dL (NEG,TRACE) Urine Glucose (UA) Negativemg/dL (NEGATIVE) Urine Ketones Negativemg/dL (NEGATIVE) Urine Occult Blood Negative (NEGATIVE) Urine Nitrite Negative (NEGATIVE) Urine Bilirubin Negative (NEGATIVE) Urine Urobilinogen Normalmg/dL (NORMAL) Urine Leukocyte Esterase Negative (NEGATIVE) Urine RBC 0-2/hpf (0-2) Urine WBC 0-5/hpf (0-5) Urine Epithelial Cells None/hpf (NONE-MOD) Urine Crystals None seen (NONE SEEN) Urine Bacteria Few/hpf (NONE-FEW) Urine Hyaline Casts None/lpf (NONE) Urine Granular Casts None seen (NONE SEEN) Urine Waxy Casts None seen (NONE SEEN) Urine Red Blood Cell Casts None seen (NONE SEEN) Urine White Blood Cell Casts None seen (NONE SEEN) Urine Mucus None seen (None Seen) Urine Trichomonas None seen (NONE SEEN) Urine Yeast None (NONE SEEN) Urinalysis Comment None Urine Culture Reflexed Not indicated Result Diagram: 09/21/16 1810 09/21/16 1810 X-Rays, CTs and MRIs Chest x-ray 09/21/16 Impression: Small left pleural effusion with adjacent atelectasis. Cardiomegaly Dictated by: Nolberto Campbell M.D. on 09/21/2016 at 19:45 12-lead ECG Ventricular pacing (patient has a pacemaker). What appears to be A. fib and flutter. Cardiac Echo Impressions PLEASE note the date. DATE OF SERVICE: 04/22/16 8716 Interpretation Summary Afib with RV pacing and controlled ventricular rate. Normal LV size and wall thickness. There is severe global hypokinesis compounded by dyssynchrony. EF is 15-20%. There is severe biatrial enlargement. There is mild - moderate mitral regurgitation. There is mild aortic regurgitation. There is mild tricuspid regurgitation. The right ventricular systolic pressure is estimated at 45 mmHg assuming a right atrial pressure of 15 mm Hg. Compared to prior study 01/03/2013 no significant changes have occurred Assessment & Plan Lexie Hernandez is a pleasant 85 year old female with a history of HFrEF, atrial fibrillation/flutter on Warfarin s/p single lead pacemaker ICD placement who presents to the ED with worsening bilateral leg edema and increased shortness of breath and fatigue for the last week to 2 weeks. PLEASE NOTE: Patient and family wish to discontinue all testing/interventions ( other than the diuresis recommended by cardiology) until seen by cardiology. I have gone back and cancelled all further testing. # Acute exacerbation of chronic HFrEF, present on admission -Unclear precipitant at this time, but in the setting of cough as noted in detail above, some concern for potential infectious etiology -Cardiology to see tomorrow -Diuresis overnight with IV Lasix to be administered 40 mg twice a day on a Lasix schedule. -Echo in the morning -The big focus of the discussion with cardiology in the morning will be related to her pacemaker/ICD. Patient and her daughters made statements suggesting that she may just want the ICD turned off. -Limit IV fluids -Daily standing weights -Monitoring of I/O -Continue bystolic and digoxin (consider checking digoxin level) # Supratherapeutic INR. Present on admission -INR was 2.5 on 08/18/16, and no sign of bleed -Unclear etiology at this time (no reported change in diet, and reports being compliant with recommended dosing) -Pharmacy to dose, -We will monitor daily INR -Consideration for administering 2.5 of vitamin K # Minimally productive cough, for about a month now. Present on admission -Unlikely to be bacterial given her presentation, but could consider viral etiology excellent-pro calcitonin to rule out bacterial -We will perform respiratory PCR swab to assess for potential etiology -Alternatively, this may just be due to her fluid overload, or she could certainly be a chronic aspirator -Consideration for repeat chest x-ray in a day or 2 # Abd pain and abnormal LFTs. Present on admission -Present since July, but worsened since then -Given her right upper quadrant pain, concerning for a potential Chiquita/hepatic etiology -Abdominal ultrasound in the morning -If she demonstrates fevers or leukocytosis, consideration for broad-spectrum coverage -Continue to monitor labs -This may potentially be related to her itching complaint (hyperbilirubinemia), and we will continue to monitor # Hyponatremia and hypochloremia. Present on admission # Anion gap indicative of a potential metabolic acidosis. Present on admission -Elevated creatinine, but without history of chronic kidney disease -Concern for underlying infection as a precipitant for her cardiac exacerbation -Added lactic acid -Continue to monitor labs, and consideration for ABG # AK I. Present on admission -Elevated creatinine present since July, but worsened since then -Likely related to her acute exacerbation and associated fluid status at this time. -No indication on the UA of an underlying UTI -Pressures do not indicate likely etiology being hypoperfusion -Continue to follow to her labs while we diurese # Elevated TSH. Present on admission -TSH and free T4 were normal in December 2015 per outpatient record -Concerning for subclinical hypothyroid, or sick thyroid given her acute illness -We will add a free T4 # Elevated troponin. Present on admission -Likely related to stress given her fluid overload in a reduced EF state -We will see as she does with diuresis overnight, and repeat troponin in the morning -Continue to monitor on telemetry -ICD is operational Chronic conditions: NPAOLEON-patient has her CPAP with her Arthritis-have continued topical NSAID (Voltaren gel as needed) Dry eyes-have continued her eye moisturizing drops Itchy, dry skin-we will continue her home cream PRN MEDICATIONS - Acetaminophen as needed for mild pain/fever/headache - Bowel regimen as needed - Antiemetic as needed Patient is admitted under inpatient status with expected length of stay greater than 2 midnights due to severity of presenting symptoms, risk of adverse event, and complexity of treatment plan. Pain Evaluation: Adequate Pain Control GI Prophylaxis: Not indicated VTE Prophylaxis: Theraputic Anticoag with Warfarin Resuscitation Status: DNR/DNI:Do Not Resuscitate/Intubate Attending Statement The patient was seen and examined together with Dr. Rowell on 09/21 and I agree with the history, exam and plan as outlined in the note above. copies to: Kurtis Brand MD, Collin T DO Sep 21, 2016 22:09 Jordi Reagan MD Sep 22, 2016 03:02
[2016-09-21] MEDS ORDERED: Artificial Tears 15 mL Ophthalmic Solution BOTH_EYES PRN (23:10)
[2016-09-21] MEDS ORDERED: Albuterol 2.5 mg/3 mL Inhalation Solution NEB PRN (23:47)
--- NOTE | 2016-09-22 01:07 | NUR ---
Admit note: Pt admitted from ER, slide transfer to bed. Pt is alert and oriented x 3 although sleepy and increased weakness over the last few weeks. Daughters say pt was independent with care up until a few weeks ago after pt had some illness. Pt now is assisted to get up to the BSC by daughters. Denies pain. Tele paced 60-80s. Pitting edema to upper thighs, shortness of breath with activity. Home CPAP with pt for use at night. Pt and daughters oriented to room and call light, instructed to call with needs.
[2016-09-22] MEDS ORDERED: Phytonadione (Adult) 2.5 MG in Dextrose 5%-Pha MIX 50 ML IV ONE (01:40)
[2016-09-22] MEDS ORDERED: Phytonadione (Adult) 10 mg/1 mL Inj PO ONE ×2 (02:40→12:10)
[2016-09-22] MEDS: Sodium Chloride LOK Flush 10 mL Syringe IVFLUSH SCH ×3 (03:31→16:30)
--- NOTE | 2016-09-22 03:59 | NUR ---
Family/Pt concerns: RN talked with pt and daughters about goals of care. Pt/daughters refused the PCR viral panel and request no more labs be drawn until they are able to talk with the razor grinder and other doctors related to pt's care. Their main concern, according to pt and daughters, is comfort. Night resident was made aware of refusal of PCR panel and family concerns.
[2016-09-22 04:14] LABS: TROPONIN T 0.141 ug/L (0.0-0.011)
[2016-09-22 05:53] VITALS: BP 93/64; PULSE 60; RESP 18; O2SAT 100
[2016-09-22 07:56] VITALS: PULSE 60; RESP 16; O2SAT 98
[2016-09-22 07:57] VITALS: BP 101/64; PULSE 59; RESP 26; O2SAT 98
[2016-09-22 10:32] VITALS: PULSE 65
[2016-09-22 11:17] VITALS: BP 95/64; PULSE 59; RESP 18; O2SAT 98
[2016-09-22] MEDS: NEBIVOLOL 2.5 MG PO SCH (11:29)
[2016-09-22] MEDS: Furosemide 10 mg/mL 4 mL Inj IVPUSH SCH ×2 (11:29→18:00)
--- NOTE | 2016-09-22 11:29 | NUR ---
Cardiac meds Cardiac medications withheld this am for low BP an HR. Hospitalist aware, and Cardiology consult pending. Continuing to monitor. Addendum: 09/22/16 at 1804 by FRITZ MOREIRA RN Cardiac meds held all day due to low BP
[2016-09-22 12:03] LABS: INR > 10.00 ratio
--- NOTE | 2016-09-22 12:59 | DRSVH ---
PROCEDURE: CT CHEST, ABDOMEN AND PELVIS WITHOUT CONTRAST ([id number]) INDICATIONS: lactic acidosis, ABD pain, EF of 15-20% TECHNIQUE: After the administration of oral contrast, 5 mm thick sections acquired from the lung apices to the s ymphysis pubis. 5 mm thick coronal and sagittal reformats acquired, with additional 7 mm coronal MIP reformats through the lungs. For radiation dose reduction, the following was used: automated expos ure control, adjustment of mA and/or kV according to patient size. COMPARISON: None. FINDINGS: Image quality: Excellent. CHEST: Lungs and pleura: There is moderate centrilobular emphysema with an apical predominance. There modera te-sized bilateral low density pleural effusions. Mild compressive atelectasis is present at the bila teral lung bases. No pneumothorax. Mediastinum: The heart is markedly enlarged. No pericardial effusion. A left-sided, single lead cardi ac pacer is present. No mediastinal adenopathy by CT size criteria. Thoracic aorta and central pulm onary arteries are normal in size. Esophagus is normal in caliber. No hiatal hernia. Chest wall: No axillary or supraclavicular adenopathy by size criteria. Thyroid gland is unremarkab le. ABDOMEN: Solid organs: Liver and spleen are normal in size. There is a small amount of perihepatic and perisp lenic free fluid. Gallbladder appears thick walled, but is poorly characterized in the absence of a intravenous contrast. Pancreas is poorly characterized given intra-abdominal ascites. No adrenal nodu les. Both kidneys are normal in size, without hydronephrosis or nephrolithiasis. A low density cysti c lesion is present off the lower pole of the right kidney. Peritoneum and bowel: Small and large bowel loops are normal in caliber and wall thickness. Scattere d colonic diverticula are present throughout the colon. No mucosal thickening to suggest acute divert iculitis. The appendix is not visualized; however there is no discrete right lower quadrant fluid or fat stranding to suggest acute appendicitis. No pneumoperitoneum. There is diffuse fat stranding thro ughout the peritoneum and a moderate amount of low-density pelvic free fluid. Nodes and vessels: No retroperitoneal or mesenteric adenopathy by size criteria. Aorta and inferior vena cava are normal in size. There are scattered atheromatous calcifications throughout the aorta a nd iliac arteries bilaterally. Surgical clips are present around the abdominal aorta. Miscellaneous: No ventral hernias. PELVIS: Genitourinary: Bladder wall thickness is normal. Miscellaneous: No inguinal hernias or adenopathy. There is diffuse anasarca throughout the subcutan eous tissues. Bones: No suspicious bony lesions. No vertebral body compression fractures. Severe degenerative ch anges are present throughout the lumbar spine. IMPRESSION: 1. Moderate pleural effusions, intra-abdominal and pelvic ascites, and diffuse anasarca. In the setti ng of marked cardiomegaly, these findings are suspicious for congestive failure and diffuse fluid ove rload. 2. The appendix is not definitely visualized; however there are no ancillary findings to suggest acut e appendicitis. 3. The gallbladder is grossly normal; however is only partially characterized. If there is clinical s uspicion for gallbladder pathology, right upper quadrant ultrasound may be helpful. Note: The preliminary [facility] interpretation and the final report are concordant. Dictated by: Cielo Goetz M.D. on 09/22/2016 at 12:47 Approved by: Cielo Goetz M.D. on 09/22/2016 at 12:57
[2016-09-22 15:54] VITALS: BP 103/62; PULSE 66; RESP 26; O2SAT 98
--- NOTE | 2016-09-22 17:49 | PCM.PNMED ---
Subjective Date of Service Sep 22, 2016 Subjective Lexie Hernandez is a pleasant 85 year old female with a history of HFrEF, atrial fibrillation/flutter on Warfarin s/p single lead pacemaker ICD placement who presents to the ED with worsening bilateral leg edema and increased shortness of breath and fatigue for the last week to 2 weeks. Hospital day #1. Overnight: no acute events. Patient's 2 daughters are in the room and they do most of the talking. There has been ongoing discussions regarding upgrade versus turning off her pacemaker/ICD. Patient tentatively scheduled for procedure (to add an additional pacer lead) on this Wednesday. However, with her ongoing symptoms and some thoughts on the side of the patient regarding changing her CODE STATUS to DNR/DNI, cardiology will visit with them today while she is here in the hospital to discuss the patient's goals moving forward. Exam Vital Signs Vital Sign - Last Date Time Temp Pulse Resp B/P Pulse Ox O2 Delivery O2 Flow Rate FiO2 09/22/16 15:54 66 26 103/62 98 Room Air 09/22/16 07:57 35.9 Intake and Output 09/21/16 09/21/16 09/22/16 Cumulative From/Thru 15:00 23:00 07:00 09/21/16 17:46 - 09/22/16 05:54 Intake Total 400 ml 400 ml Output Total 50 ml 50 ml Balance 350 ml 350 ml Intake Oral 400 ml 400 ml Output Urine Total 50 ml 50 ml Exam General: Thin frail woman laying in bed alert and oriented 3 HEENT: NCAT, PERRL, EOMI.Conjunctiva are not injected , dry mucous membranes Neck: Neck supple, no thyromegaly. Chest & Lungs: Clear to auscultation bilaterally with minimal crackles appreciated in the left lower base Cardiovascular: Regular rate, S1,S2, S3 Abdomen: Mild discomfort noted on palpation of the right abdomen/especially the right upper quadrant Extremities: Significant, 3+ pitting edema noted from the level of the feet up to the abdomen bilaterally. Psych: Normal mood and affect. Thought process and content intact. Lab and Diagnostics Result Diagram: 09/21/16 1810 09/22/16 0230 X-Rays, CTs and MRIs PROCEDURE: X-RAY CHEST ONE VIEW, PORTABLE IMPRESSION: Small left pleural effusion with adjacent atelectasis. Cardiomegaly Dictated by: Nolberto Campbell M.D. on 09/21/2016 at 19:45 Approved by: Nolberto Campbell M.D. on 09/21/2016 at 19:46 PROCEDURE: CT CHEST, ABDOMEN AND PELVIS WITHOUT CONTRAST IMPRESSION: 1. Moderate pleural effusions, intra-abdominal and pelvic ascites, and diffuse anasarca. In the setting of marked cardiomegaly, these findings are suspicious for congestive failure and diffuse fluid overload. 2. The appendix is not definitely visualized; however there are no ancillary findings to suggest acute appendicitis. 3. The gallbladder is grossly normal; however is only partially characterized. If there is clinical suspicion for gallbladder pathology, right upper quadrant ultrasound may be helpful. Dictated by: Cielo Goetz M.D. on 09/22/2016 at 12:47 Approved by: Cielo Goetz M.D. on 09/22/2016 at 12:57 12-lead ECG Ventricular pacing (patient has a pacemaker). What appears to be A. fib and flutter. Cardiac Echo Impressions PLEASE note the date. DATE OF SERVICE: 04/22/16 5922 Interpretation Summary Afib with RV pacing and controlled ventricular rate. Normal LV size and wall thickness. There is severe global hypokinesis compounded by dyssynchrony. EF is 15-20%. There is severe biatrial enlargement. There is mild - moderate mitral regurgitation. There is mild aortic regurgitation. There is mild tricuspid regurgitation. The right ventricular systolic pressure is estimated at 45 mmHg assuming a right atrial pressure of 15 mm Hg. Compared to prior study 01/03/2013 no significant changes have occurred Assessment & Plan Lexie Hernandez is an 85 year old female with a history of HFrEF, atrial fibrillation/flutter on Warfarin s/p single lead pacemaker ICD placement who presents to the ED with worsening bilateral leg edema and increased shortness of breath and fatigue for the last week to 2 weeks. Hospital day #1. # Acute exacerbation of chronic HFrEF, present on admission -Unclear precipitant at this time, but in the setting of cough as noted in detail above, some concern for potential infectious etiology -Cardiology, Dr Cid consulted. -Diuresis overnight with IV Lasix to be administered 40 mg twice a day on a Lasix schedule. Morning dose held due to low blood pressure of 95/66. Nebivolol was held this morning too d/t bradycardia. -Dr. De Guzman, cardiology, met with the patient and her family, and they opted to go with comfort care. Palliative care consult has been requested. # Supratherapeutic INR. Present on admission -INR was 2.5 on 08/18/16, and no sign of bleed -Etiology is most likely 2/2 recent antibiotic use with no change in warfarin dose -INR of 10 this morning, 10 of vitamin K administered. # Minimally productive cough, for about a month now. Present on admission. -Unlikely to be bacterial given her presentation, but could consider viral etiology and pro calcitonin to rule out bacterial. -Family denies any treatment or any additional tests or labs to be done. # Abd pain and abnormal LFTs. Present on admission -Present since July, but worsened since then -Given her right upper quadrant pain, concerning for a potential Chiquita/hepatic etiology. -Again, as mentioned above patient's family denies any additional testing. # Anion gap indicative of a potential metabolic acidosis. Present on admission -Elevated creatinine, but without history of chronic kidney disease -Concern for underlying infection as a precipitant for her cardiac exacerbation -Family denies any treatment or any additional tests or labs to be done. # AK I. Present on admission -Elevated creatinine present since July, but worsened since then -Likely related to her acute exacerbation and associated fluid status at this time. -No indication on the UA of an underlying UTI -Family denies any treatment or any additional tests or labs to be done. # Elevated TSH. Present on admission -TSH and free T4 were normal in December 2015 per outpatient record -Concerning for subclinical hypothyroid, or sick thyroid given her acute illness -Family denies any treatment or any additional tests or labs to be done. # Elevated troponin. Present on admission -Likely related to stress given her fluid overload in a reduced EF state -Family denies any treatment or any additional tests or labs to be done. Chronic conditions: [place]-patient has her CPAP with her Arthritis-have continued topical NSAID (Voltaren gel as needed) Dry eyes-have continued her eye moisturizing drops Itchy, dry skin-we will continue her home cream PRN MEDICATIONS - Acetaminophen as needed for mild pain/fever/headache - Bowel regimen as needed - Antiemetic as needed Patient is admitted under inpatient status with expected length of stay greater than 2 midnights due to severity of presenting symptoms, risk of adverse event, and complexity of treatment plan. Dispo: Patient is currently being treated for heart failure and elevated INR. The family is very resistant to treatment and has refused multiple lab tests and only want diuresis at this time. It was explained to the family that the INR's needed to be monitored as we cannot diuresis the patient without this information as this patient could potentially be dangerous for the patient. The family understood this information and agreed to have INR draws. The patient and family would prefer to follow only the cardiology recommendations of diuresis. The patient has not been diuresed as her INR is too high and she is hypotensive. The patient will be seen by palliative care tomorrow for possible hospice as the patient and family is now refusing other medical treatment. GI Prophylaxis: Not indicated VTE Prophylaxis: Theraputic Anticoag with Warfarin VTE Mechanical Devices: Intermittant Pneumatic CD Resuscitation Status: DNR/DNI:Do Not Resuscitate/Intubate Attending Statement The patient was seen and examined together with Dr. Dutton on 09/22/16 and I have added additional information to the note above. Queta Dutton DO Sep 22, 2016 17:49 Bri Moreno DO Sep 23, 2016 08:22
--- NOTE | 2016-09-22 18:59 | PCM.CONPAL ---
Date of Service Sep 22, 2016 Date of Hospital Admission: Sep 21, 2016 at 19:57 Date of Palliative Consult: Sep 22, 2016 Requesting Provider: Saba De Guzman MD Reason Palliative Care Consult: Goals of Care Discussion Hospital Unit @time of consult: Medical/Pediatric Care Palliative Care Recommendation Summary of palliative recommendations: -Symptom management (Pain/other) Profound fatigue and dyspnea patient presently is fairly comfortable. After the end of our discussion her daughter's place CPAP on her and she remains quite comfortable. UNK-lsr-rrvct cardiomyopathy. V. fib-aborted with defibrillator. Her defibrillator has now been turned off. She continues to rely on her pacemaker Acute renal insufficiency most likely due to decreased flow Presumed congestive hepatopathy with elevated LFT Overanticoagulation- due to congestion in liver as well as decreased PO intake. -DPOA/Advanced Directives/POLST-DPOAHC in chart. POLST redone for DNR/DNI/no feeding tube and comfort care. When they go home they do not want to come back to the hospital and goal is to at home. -Family/emotional support-reviewed option for hospice but patient's daughters want to do this on their own. The patient defers to them. Reviewed medications of liquid morphine concentrate as well as lorazepam. I would suggest continuation of diuretic for comfort. Will review question of home O2 -Spiritual support-they have support within the family. They also appear to have support in the community Problems: End of Life Preferences DNR/DNI no feeding tube and now aiming for comfort measures Family requests discontinuation of blood draws. Goals of Mcfp with daughters to care Resuscitation Status Resuscitation Status: DNR/DNI:Do Not Resuscitate/Intubate POLST Updates/Changes Artificially Admin Nutrition: No Artifical Nutrition by Tube POLST Discussed with: Patient, Health Care Agent (DPOAHC) POLST Review Outcome: New Form Completed . 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 Kurtis Brand 85-year-old patient with her 2 daughters at her bedside. Majority of history is taken from daughters in the patient drifts off to sleep. She is able to engage in direct questioning for a short period of time and is appropriate in her responses. She defers to her daughter Sarah. Patient has a history of atrial fibrillation as well as nonischemic cardiomyopathy. She moved here approximately 3 years ago to be near Sarah with her other daughter Juana living in [place]. The patient was in 2008 and was able to live independently but was having increasing cardiac symptoms as well as chronic pain in her right knee and to some degree her left hip. She has been living independently with the assistance of her family until the last month or so and particularly the last 2 weeks her daughters have been there as 24/ are caregivers. During a cardiology follow-up visit in mid July she was already quite short of breath with decreased exertional tolerance increased fatigue and sleeping more. She had progressive edema and the decision was to hospitalize her. She has history of chronic atrial fibrillation dating back about 20 years. When she moved to [facility] she was noted to have her significant cardiomyopathy with an EF last checked March 2016 of 15-20%. She had an AICD and pacemaker placed about 3 years ago. This had not discharged until interrogation this evening noting V. fib 09/06 which was successfully treated. Patient is unaware of this events. The patient's 2 daughters indicate that over the past few weeks they have had discussions including with the patient with the decision that they would like to have her home for end of life. The patient indicates that she has long-term care insurance that has already supplied hospital bed shower chair and commode. They have also made plans together with a mortuary in [place]. The patient who brings this up. Her CODE STATUS up until now has been full code but they would like it changed to DO NOT RESUSCITATE and comfort care. 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 Patient is a Restorationism and had always kept involvement with her buddhist. Her was Sikhism. After he Sarah apparently at the request of her mother was baptized. The patient notes that buddhist continues to play an important role in her life Past Medical History Significant PMH Noted: History of endometrial CA 2000 status post hysterectomy with radiation therapy in 2003 for recurrence History of nonischemic cardiomyopathy as above Chronic atrial fibrillation on warfarin over anticoagulation on admission Pacemaker and AICD 2013 Status post appendectomy OS A on CPAP History of squamous cell CA Status post carpal tunnel release DJD knees Social History Occupation: Retired physical therapist Family Members Issues: Father [place] 68 with history of diabetes mother age 91 [place] Social Support: Locally support has been Sarah, her and her teenage son all of whom have been involved in patient's care Juana has been living in [place]- recently arrived to assist with her mother Spiritual Support Spiritual Support See above Palliative Performance Scale PPS Ambulation: Mainly Bed PPS Activity: Unable to do any activity PPS Self-Care: 1 person assist PPS Intake: Normal or reduced PPS Conscious Level: Full or confusion Performance Scale: 30% Allergy Allergies Reviewed: Yes Medications Current Medications: Current Medications Sodium Chloride 10 ml FRANCES IVFLUSH Last administered on 09/22/16 16:30; Admin Dose 10 ML; Start 09/22/16 at 00:30 Furosemide 40 mg 06,18 IVPUSH Last administered on 09/21/16 21:39; Admin Dose 40 MG; Start 09/21/16 at 20:30 Al Hydrox/Mg Hydrox/Simethicone 30 ml Q6 PRN PO; Start 09/21/16 at 19:20 Ondansetron HCl 4 mg Q4H PRN IVPUSH; Start 09/21/16 at 19:20 Senna 2 tablet BID PRN PO; Start 09/21/16 at 19:20 Polyethylene Glycol 17 gm DAILY PRN PO; Start 09/21/16 at 19:20 Acetaminophen 650 mg Q6H PRN PO; Start 09/21/16 at 19:20 Nitroglycerin 0.4 mg Q5MIN PRN SL; Start 09/21/16 at 19:20 Digoxin 0.125 mg 18 PO; Start 09/22/16 at 18:00; Stop 09/22/16 at 18:00; Status DC Albuterol 2.5 mg Q4H PRN NEB Last administered on 09/22/16t 12:44; Admin Dose 2.5 MG; Start 09/21/16 at 23:47 Patient Own Medication 1 ea DAILY PO; Start 09/22/16 at 08:30 Patient Own Medication 1 applic DAILY PRN TOPICAL; Start 09/21/16 at 23:10 Artificial Tears 1-2 Drops Q2H PRN BOTH_EYES; Start 09/21/16 at 23:10 Diclofenac Sodium 1 applic QID PRN TOPICAL; Start 09/21/16 at 23:10 Pharmacy Consult 1 ea DAILY@17 XX; Start 09/22/16 at 17:00 Scheduled Calcium Carbonate (Tums) 500 Mg Tab.chew 250 MG PO DAILY Digoxin (Digoxin) 125 Mcg Tablet 125 MCG PO QPM Multivitamin (Multi Vitamin Daily) 1 Each Tablet 1 EACH PO DAILY Nebivolol (Bystolic) 2.5 Mg Tablet 2.5 MG PO DAILY Torsemide (Torsemide) 20 Mg Tablet 40 MG PO DAILY Warfarin Sodium (Warfarin Sodium) 1 Mg Tablet 4.5 MG PO Wednesday & Wednesday Warfarin Sodium (Warfarin Sodium) 1 Mg Tablet 4 MG PO DAILY except Wednesday & Wednesday Scheduled PRN Ammonium Lactate (Ammonium Lactate) 140 Gm Cream..g. 1 APPLIC TOPICAL DAILY PRN PRN skin dryness Carboxymethylcellulose Sodium (Refresh Tears) 15 Ml Drops 15 ML OP Q2H PRN PRN dry eyes Diclofenac Gel (Diclofenac Gel) 100 Gm Tube 2 APPLIC TOPICAL QID PRN PRN arthritis To jaw for lock jaw Levalbuterol Tartrate (Levalbuterol Tartrate Hfa) 45 Mcg/Actuation Hfa.aer.ad 2 PUFFS IH Q4H PRN PRN For Shortness of Breath Methylcellulose (with Sugar) (Citrucel Powder) 850 Gm Powder 850 GM PO DAILY PRN PRN For Constipation Objective Findings Exam Vital Sign - Last Date Time Temp Pulse Resp B/P Pulse Ox O2 Delivery O2 Flow Rate FiO2 09/22/16 15:54 66 26 103/62 98 Room Air 09/22/16 07:57 35.9 Intake and Output 09/21/16 09/21/16 09/22/16 Cumulative From/Thru 15:00 23:00 07:00 09/21/16 17:46 - 09/22/16 05:54 Intake Total 400 ml 400 ml Output Total 50 ml 50 ml Balance 350 ml 350 ml Intake Oral 400 ml 400 ml Output Urine Total 50 ml 50 ml General: Alert (but drowsy, responds appropriately when questioned is directed to her), Oriented, Person, Place HEENT: Scleral Anicteric, Other (cyanotic lips) Lungs: Other (shallow respirations) Neuro: Cranial Nerve 3-12 Intact Extremities: Edema (2+) Lab/Diagnostics Lab and Imaging results reviewed in detail in EMR. ProBNP 15,000 Sodium 132 creatinine 2.33-with baseline of 1.3 BUN 76 AST 81, ALT 121 INR greater than 10 Patient/Family Conference Members Present Family Members Present Juana David--daughter Sarah Cadena daughter patient Medical Team Members Present? Ehsan [facility] Discussion/Goals of Care Discussion FAMILY UNDERSTANDING OF DISEASE: Patient participates minimally in discussion tending to drift off to sleep. Sarah is main spokesperson but both of her daughters seem to understand severity of disease and verbalize goal of getting their mother home and supporting her there. DISEASE PROGRESSION/EVIDENCE OF DECLINE: Reviewed decline could be a matter of days and or weeks SYMPTOM BURDEN: Reviewed some possible complications going forward such as agitation nausea vomiting, pain, urinary retention etc. GOALS: HOPES/WORRIES: Many questions regarding hospice. They feel that they are capable of managing all of her needs at home. They do not believe that other than possibly some morphine for comfort that other medications will be needed. Sarah has MANAGER SOFTWARE experience has confidence in her ability to care. Reviewed benefits of hospice as far as the unexpected, spiritual support, and medication guidance. Equipment is already in the house Time spent Total time 50 minutes; >50% face to face with patient and/or family, providing counselling regarding plans and recommendations, and in care coordination with his/her medical teams. Total time of 80 minutes answering questions around hospice end-of-life issues goals of care. I also spent an additional 30 minutes counseling for advanced care planning with the patient/the patients family/the surrogate decision maker. copies to: Kurtis Brand MD; Saba De Guzman MD, Deborah A MD Sep 22, 2016 18:59
--- NOTE | 2016-09-22 19:23 | PROCED ---
[address] [address] PROCEDURE NOTE PATIENT: PRAVIN HIGH : 1930 MR#: [id number] ADMIT: 09/21/2016 JOB ID: [id number] DATE OF SERVICE: 09/22/2016 SURGEON: POSTOPERATIVE DIAGNOSIS(ES): PREOPERATIVE DIAGNOSIS(ES): CHIEF COMPLAINT: Transition of care. PATIENT PRESENTATION: This is a complex, 85-year-old woman who has had nonischemic cardiomyopathy for the past 10 years with progressive worsening symptoms for the past three years and Cardiology is consulted because her goals of care have changed and she desires to be DO NOT RESUSCITATE/DO NOT INTUBATE. PROCEDURES PERFORMED: Device interrogation of her Medtronic single lead implantable cardioverter-defibrillator. COMPLICATIONS: None. PROCEDURE: I performed interrogation in the patient's room as she appears to be actively in a state of dying. Her battery longevity is 8.2 years. Device was implanted May 08, 2013. In terms of her RV lead pacing parameters, impedance is stable, capture threshold is stable and sensed R-waves are also stable. She is programmed in VVI mode with lower rate limit of 60 beats per minute. In terms of tachy therapy, she has two programmed zones. VT zone for rate 176-200 beats per minute where she is designed to get multiple antitachycardia pacing treatments followed by 35 joule shocks. She also has VF zone for rate greater than 200 beats per minute. She gets ATP before charging and then multiple 35 joule shocks. Her quick look demonstrates that she actually had two ventricular fibrillation episodes in the past two weeks. The 1st episode occurred at 10 p.m. on September 06 and was ventricular tachycardia that required one shock. The 2nd episode was on September 09 and demonstrated spontaneous resolution of dysrhythmia prior to shock being delivered. Her volume status demonstrates progressive volume overload starting in early June despite our efforts to aggressively diurese her. Her activity level demonstrates progressive decline in the past month. She is V paced 73% of the time since last session, August 12, 2016. Adjustment performed: Tachy therapy was disabled per patient's wishes, but the siddharth therapy is left unchanged. Thank you very much for the opportunity to participate in her care.
--- NOTE | 2016-09-22 23:45 | NUR ---
K-pads for comfort. Pt would like to be kept warm. ordered K-pad for comfort. Pt is currently resting comfortably in bed.
[2016-09-23] MEDS: Sodium Chloride LOK Flush 10 mL Syringe IVFLUSH SCH ×2 (00:30→08:30)
[2016-09-23] MEDS: Furosemide 10 mg/mL 4 mL Inj IVPUSH SCH (06:00)
--- NOTE | 2016-09-23 06:41 | NUR ---
NOC Pt states she's excited to get discharge and just wanna be comfortable at home with her daughter. Pt's family wanted to have the End-of-Life care booklet information. Pt is comfortable laying in bed with no complains.
--- NOTE | 2016-09-23 07:49 | CONS ---
[address] [address] CONSULTATION REPORT PATIENT: PRAVIN HIGH : 1930 MR#: [id number] ADMIT: 09/21/2016 JOB ID: [id number] DATE OF SERVICE: 09/14/2016 CHIEF COMPLAINT: Weakness. HISTORY OF PRESENT ILLNESS: The patient is a delightful, 85-year-old woman with a nonischemic cardiomyopathy that has been longstanding. She status post single lead Medtronic ICD implanted for primary prevention of sudden cardiac . She has functional MR in the setting of dilated left ventricle and her EF is about 10-15%. I was contacted by the patient's daughter yesterday. The patient was doing poorly. She was somnolent but arousable and that she was having worsening lower extremity edema. I recommended urgent ED evaluation to be followed by possibly admission to the hospital. She was admitted yesterday with multiple issues including altered mental status in the setting of uremia, acute renal failure with a creatinine of 2.7, supratherapeutic INR greater than 10 and moderate lower extremity edema and moderate bilateral pleural effusions noted on CT scan. She has chronic stable dyspnea but no significant cough, orthopnea. Her lower extremity edema is stable. Cardiology was consulted to assist with management. PAST MEDICAL HISTORY: 1. Ischemic cardiomyopathy. She was diagnosed many years ago and relocated to [facility] about three years ago to be closer to her family. There are notes going back to 2007 documenting reduced LV systolic function. 2. Chronic atrial fibrillation treated with rate control and oral anticoagulation with warfarin. 3. Moderate mitral regurgitation. 4. Frequent PACs and PVCs. 5. Tonsillectomy. 6. Right hip surgery. 7. Bilateral carpal tunnel release. 8. Hysterectomy. 9. History of uterine cancer treated with surgical resection. SOCIAL HISTORY: She is accompanied today by her two daughters today who are very supportive and she is also able to participate in her care right now. She does not smoke. FAMILY HISTORY: She has a brother with emphysema. Her father had diabetes and from a heart attack in his 60s. Her mom had heart failure and at age 91. ALLERGIES: LISINOPRIL which causes cough and SHELLFISH which causes eyes to swell up. CURRENT MEDICATIONS AT HOME: 1. Bystolic 2.5 mg daily. 2. Digoxin 125 mcg daily. 3. Torsemide 20 mg tablets, 2 tablets daily. 4. Warfarin monitored by primary care provider. She takes 4.5 mg on Mondays and Fridays and 4 mg on the other days. 5. Various supplements including, chlorella powder, Citrucel oral powder, multivitamin, Tums and others. She in the past was on spironolactone and angiotensin receptor gustavo but lately was not able to tolerate these medications due to hypotension. REVIEW OF SYSTEMS: The patient denies air hunger at this moment in time. She feels sleepy. She denies any bleeding. She says her skin feels itchy on her back. Otherwise, 10 point review of systems is negative. CURRENT MEDICATIONS: In the hospital: 1. Bystolic 2.5 mg daily. 2. Lasix 40 mg IV twice a day. 3. Digoxin 0.125 mg daily. 4. Various p.r.n.s. PHYSICAL EXAMINATION: Vital signs: Temperature 35.9, pules 66 beats per minute, respiratory 26 breaths per minute, blood pressure 103/62, satting 98% on room air. Thin, cachectic, older lady, somnolent but arousable. Eyes: No scleral icterus. Neck is supple. No carotid bruits. Neck veins are at 7 cm of water. Heart: Normal S1, S2. There is a 2/6 holosystolic murmur at the apex. Lungs with diminished breath sounds at bases consistent with pleural effusions. Abdomen is soft with positive bowel sounds. There is no palpable hepatomegaly but positive hepatic jugular reflex is present on exam. Legs show that serial compression devices are on. She has mild bilateral edema to knee. Skin: There are some scratch chahal but otherwise no significant lesions. There are some seborrheic keratoses present. Mental status: Patient is in a state of delirium with waxing and waning level of consciousness. She is somnolent but arousable. Mood: She is aware of her imminent passing and is handling it well. LABORATORIES: Reviewed. Her creatinine is 2.3 on admission, 2.2 currently. Of note, most recent creatinine in the clinic obtained August 11 was 1.2. CBC is fine. Her lactic acid is elevated at 5.1, calcium is mildly elevated at 10.2, albumin is normal at 3.9. Lipids are at goal. Procalcitonin is elevated. TSH is elevated at 11.9, but free T4 is actually normal. Dig level is 1.6. Urinalysis is reassuring. Chest x-ray reviewed personally and shows massive cardiomegaly. CT scan shows bilateral pleural effusions and ascites. I personally reviewed the study. She also has just massive cardiomegaly. ASSESSMENT AND PLAN: In summary, this is an 85-year-old woman with longstanding cardiomyopathy that has been diagnosed about 10 years ago and she has been under cardiology clinic care here at [facility] for the past three years. She has had progressive decline and her hemodynamics at this moment in time are such that she is cold and dry. She does not have air hunger, but she is hypotensive and she is not really able to tolerate neither AMARILYS inhibitor nor ARB so she cannot really benefit from those medicines to optimize her LV function. Her exercise capacity has steadily declined, and she is here with her daughters to discuss plan of care. In the past, we have spoken about her options and we had a really fredy discussion when I last saw her on August 12, 2006. Patient understands that her prognosis is not good and she is choosing to proceed with hospice treatment. I consulted Dr. Simmons. I appreciate her expertise. I also appreciate close monitoring by Dr. Bri Moreno. This patient is choosing to have DO NOT RESUSCITATE/DO NOT INTUBATE code status. She is choosing to focus on comfort rather then on maintaining and prolonging life. Therefore I discontinued her digoxin. I kept Lasix going. Maybe it will be helpful to her to avoid air hunger. I think it is okay to stop Bystolic at this juncture. I turned off her ICD. I disabled tachy therapy, but I left the pacing feature on because she is basically pacemaker dependent at this juncture and about 87% of her beats are initiated by the permanent pacemaker. As far as anticoagulation for paroxysmal atrial fibrillation for stroke prevention, her INR is super therapeutic. I agree with holding her warfarin. I agree with holding digoxin because it has a narrow therapeutic window and she has acute renal failure. Thank you very much for the opportunity to participate in this patient's care. Of note, over an hour was spent in family meeting with the patient and her daughters and discussing this case with the hospitalist physician, palliative care physician and patient's direct marketing representative, Dr. Dawn. I dictated device check separately. Thank you very much for the opportunity to participate in her care.
--- NOTE | 2016-09-23 08:06 | PCM.DIMED ---
Queta Dutton DO 09/23/16 0806: Discharge Instructions Date of Service Sep 23, 2016 Dates of Hospitalization Sep 21, 2016 at 19:57 Discharge Diagnosis Discharge Diagnosis 1. Acute exacerbation of chronic HFrEF, present on admission, ongoing. 2. Supratherapeutic INR, present on admission, ongoing. 3. Minimally productive cough, for about a month now, present on admission, ongoing. 4. Abdominal pain and abnormal LFTs, present on admission, ongoing. 5. Anion gap indicative of a potential metabolic acidosis, present on admission , ongoing. 6. AK I, present on admission, ongoing. 7. Elevated TSH, present on admission, ongoing. 8. Elevated troponin, present on admission, ongoing. Medication Instructions These are the comfort medications: - Morphine Sulfate concentrate, 20 mg/ml 30 cc bottle -Dose: 5-10 mg (1/4 -1/2 cc) slow by mouth every 1 hour as needed for pain - Lorazepam 2 mg/ml, 30 cc bottle -Dose: 1.5-1 mg slow by mouth every 2 hours as needed for anxiety - Haloperidol, 1mg -Dose: 1 mg sublingual/mouth every 6 hours as needed for nausea Secretions: - Transderm scop patch - not usually recommended d/t short time frame and side effects. Prefer to use morphine. Diet No restrictions Activity No restrictions Call your provider Other (Patient is on comfort care.) Bri Moreno DO 09/23/16 1423: Discharge Instructions Attending's Statement The patient was seen and examined together with Dr. Dutton on 09/23/16 and I agree with the history, exam and plan as outlined in the note above. Queta Dutton DO Sep 23, 2016 08:06 Bri Moreno DO Sep 23, 2016 14:23
[2016-09-23] MEDS: NEBIVOLOL 2.5 MG PO SCH (08:30)
--- NOTE | 2016-09-23 09:12 | NUR ---
Palliative care note D/A: Chart reviewed and case discussed in PC rounds this am. Dr. Simmons has already provided initial consult. Pt wishes to go home with dtr's. Dtrs indicated last noc during initial visit that they wished to take mother home without intervention of hospice. Pt with LTC and family identifies that needed equipment is already in place. Hospital bed and commode are mentioned. This morning-it is thought that family had changed mind and was considering intervention of [facility]. Msg left for Delia at [facility] to schedule morning info visit if possible. Pt to dc today. Dr. Simmons shortly thereafter indicates that she has now found out that family continues to wish home without [facility] and that above was a mistake. Correction left on [facility] vm indicating no need for info visit. Dr. Simmons already written for dc eol meds. Dr. De Guzman has indicated that she is available for family to consider continued prescription of necessary meds post admit. Other possibility of course is pt PCP. P: Pt to dc today. DC comfort care/eol/hospice type meds written by Dr. Simmons and given to hospitalist team. No need for hospice info visit. Sherice DURAN CCM Addendum: 09/23/16 at 1316 by OSVALDO ALVES Palliative care note amendment This worker will follow up with pt daughters in relation to care at home. Will also discuss with [facility] and ask them to be aware of potential need for services. Sherice DURAN, [facility]
--- NOTE | 2016-09-23 10:43 | NUR ---
Palliative Care Palliative Care received order from Dr Tahmina Dutton 09/22/16 (late in day) to assist with goals of care. Patient is an 85 year old woman with CHF. She was admitted 09/21/16 for care of worsening bilateral leg edema, increased shortness of breath and fatigue. Patient lives at home with daughter. Sarah Gray (daughter/DPOA) [phone] Juana Hernandez (daughter) [phone] Palliative Care provider saw patient late day yesterday. Patient will discharge home today. Esthela Goldberg
--- NOTE | 2016-09-23 11:35 | NUR ---
Social Work-initial assessment: Data & Assessment: See initial assessment. Pt is a 85 y/o female who was admitted on 09/21/16 for CHF and Cardio Myopathy per H&P. Pt's insurance is Self-A-r-T out of [facility] and PCP is Kurtis Brand MD. EMR Reviewed. Pt's readmission score is 4-high risk. SW met with patient and patient's daughters to discuss discharge planning, SW role explained and initial assesment complete. Pt resides at home with daughter in a single level home where pt requires assistance with basic ADLs. Patient has a caregiver and 24 hour family care. Pt has no HH or SNF history. Pt has DPOA/ advanced directive. Patient's DPOA is Sarah Gray and a copy is on the patient's chart. Pt has no senior care care or VA benefits. Pt's family have been assisting her at home. Patient will discharge home with comfort measures, caregiver and 24-hr. family care. Pt's family to provide transport home at discharge. SW provided phone number and plan on white board in room. SW will continue to follow. Plan:Pt to likely discharge home with comfort care, 24-hour caregiver and family care. Pt's family is supportive. SW will continue to follow. Blanquita Moyer LMSW, EVER Addendum: 09/23/16 at 1146 by BLANQUITA MOYER Amended: Links added.
--- NOTE | 2016-09-23 12:35 | NUR ---
Discharge Patient departed unit via wheelchair, accompanied by staff and family. Patient alert and oriented. Patient and family continued to refused hospice or treatments, including assessments, vital signs and most medications. Daughters POA at side. Patient discharging home with daughters on comfort measures. Discharge instructions/medications reviewed with patient/daughters prior to discharge. All questions addressed. Discharge instructions, patient belongings and prescriptions in hand.
--- NOTE | 2016-09-23 12:49 | PCM.PNPALL ---
Date of Service Sep 23, 2016 Date of Hospital Admission: Sep 21, 2016 at 19:57 Date of Palliative Consult: Sep 22, 2016 Palliative Care Recommendation Summary of palliative recommendations: -Symptom management (Pain/other) Profound fatigue and dyspnea patient presently is fairly comfortable. After the end of our discussion her daughter's place CPAP on her and she remains quite comfortable. LZP-lpw-chnyv cardiomyopathy. V. fib-aborted with defibrillator. Her defibrillator has now been turned off. She continues to rely on her pacemaker Acute renal insufficiency most likely due to decreased flow Presumed congestive hepatopathy with elevated LFT Overanticoagulation- due to congestion in liver as well as decreased PO intake. -DPOA/Advanced Directives/POLST-DPOAHC in chart. POLST redone for DNR/DNI/no feeding tube and comfort care. When they go home they do not want to come back to the hospital and goal is to at home. -Family/emotional support-reviewed option for hospice but patient's daughters want to do this on their own. The patient defers to them. Reviewed medications of liquid morphine concentrate as well as lorazepam. I would suggest continuation of diuretic for comfort. Will review question of home O2 -Spiritual support-they have support within the family. They also appear to have support in the community 09/23/16 Reviewed EOL meds- morphine concentrate 20 mg/ml #30cc script-5-10 mg SL PRN Q1 hour-- can decrease to 2 mg if sedating. lorazepam 2mg/ml-0.5 to 1 mg Q 3-4 hour PRN haloperidol 1mg tab-#12 1/2 to 1 tab PO PRN NV or agitation. Reviewed precaution with these meds, appropriate storage and disposal. They will contact Dr. De Guzman or Sunday if needs refills but I suspect few meds will be used. Call Palliative Care PRN for any questions They are instructed to continue her torsemide for comfort until not taking PO Reviewed some of the protocol at time of -"expected " etc. Home already contacted and arrangements made Reviewed option for hospice if they feel this is needed in the future. I suspect the pt has few days to weeks to go. Problems: End of Life Preferences DNR/DNI no feeding tube and now aiming for comfort measures Family requests discontinuation of blood draws. Goals of Intermediate with daughters to care Disposition Home but without hospice Resuscitation Status Resuscitation Status: DNR/DNI:Do Not Resuscitate/Intubate POLST Updates/Changes Artificially Admin Nutrition: No Artifical Nutrition by Tube POLST Discussed with: Patient, Health Care Agent (DPOAHC) POLST Review Outcome: New Form Completed . Advanced Care Planning Address: POLST Palliative Subjective Palliative Care Daily Responde: Patient, Family/Proxy, Team Subjective 85 yo with end stage nonischemic cardiomyopathy now with pacemaker but a disconnected ICD with acute renal and hepatic dysfxn presumed due to low output failure. She wore her CPAP through the night and slept well.She continues to be somnolent -at times asking for liquids to drink and then others-aspirating them. She reiterates that she wants to go home. I think she is too exhausted to be totally decisional but her daughters remain fixed on going home with instructions and medications but without hospice. They remain confident of being able to manage.she has all equipment there--bed, BSC, shower chair, wheelchair. Palliative Performance Scale PPS Ambulation: Mainly Bed PPS Activity: Unable to do any activity PPS Self-Care: 1 person assist PPS Intake: Normal or reduced PPS Conscious Level: Full or drowsey, +/- confusion Performace Scale: 20% Responsive Patient Symptoms Pain (current): Mild (knees) Drowsiness/Sleepiness: Moderate Shortness of Breath: Moderate Constipation BM today Objective Findings Exam Vital Sign - Last Date Time Temp Pulse Resp B/P Pulse Ox O2 Delivery O2 Flow Rate FiO2 09/23/16 00:30 CPAP/BIPAP 09/22/16 15:54 66 26 103/62 98 09/22/16 07:57 35.9 Intake and Output 09/22/16 09/22/16 09/23/16 Cumulative From/Thru 15:00 23:00 07:00 09/21/16 17:46 - 09/23/16 05:28 Intake Total 450 ml 25 ml 875 ml Output Total 50 ml Balance 450 ml 25 ml 825 ml Intake Oral 450 ml 25 ml 875 ml Output Urine Total 50 ml # Voids 4 2 6 # Bowel Movements 0 2 2 General: Oriented, Person, Place, Other (very somnolent) HEENT: Scleral Anicteric, Other (cyanotic lips) Heart: Other (radial pulses thready, barely palpable.) Lungs: Diminished, Other (shallow respirations) Neuro: Cranial Nerve 3-12 Intact Extremities: Edema (2+) Addtional Information minimal UO-50cc yesterday Lab/Diagnostics Lab and Imaging results reviewed in detail in EMR. Patient/Family Conference Members Present Family Members Present 2 daughters and patient Discussion/Goals of Care Discussion FAMILY UNDERSTANDING OF DISEASE: DISEASE PROGRESSION/EVIDENCE OF DECLINE: SYMPTOM BURDEN: GOALS: HOPES/WORRIES: FAMILY WISHES/VALUES: Do you want to be told truth about his illness, even if unpleasant? Does family want to know prognosis when it can be predicted, to better guide treatment decisions? What is quality of life for the patient: to be able to interact with their loved ones and friends, to travel, not to be bedbound, to be independent in taking care of themselves: Would patient choose quality of life over quantity of life? Would comfort care be more important than being awake and alert? If patient is no longer alert and aware because of their illness, would you choose comfort for them? Palliative Care counselled: Time spent Total time 45 minutes; >50% face to face with patient and/or family, providing counselling regarding plans and recommendations, and in care coordination with his/her medical teams. Including med management and auto club travel counselor to pt and her daughters and review of plan with Hosp Team I also spent an additional [ ] minutes counseling for advanced care planning with the patient/the patients family/the surrogate decision maker. copies to: Kurtis Brand MD; Saba De Guzman MD, Deborah A MD Sep 23, 2016 12:49
--- NOTE | 2016-09-23 15:09 | PCM.DC.MED ---
Discharge Summary Date of Service Sep 23, 2016 Dates of Hospitalization Date of Hospital Admission Sep 21, 2016 at 19:57 Date of Discharge: Sep 23, 2016 Providers: Admitting Physician: Jordi Reagan MD Primary Care Physician: Kurtis Brand MD Attending Physician: Jordi Reagan MD Diagnosis at Time of Discharge Diagnosis at Time of Discharge 1. Acute exacerbation of chronic HFrEF, present on admission, ongoing. 2. Supratherapeutic INR, present on admission, ongoing. 3. Minimally productive cough, for about a month now, present on admission, ongoing. 4. Abdominal pain and abnormal LFTs, present on admission, ongoing. 5. Anion gap indicative of a potential metabolic acidosis, present on admission , ongoing. 6. AK I, present on admission, ongoing. 7. Elevated TSH, present on admission, ongoing. 8. Elevated troponin, present on admission, ongoing. Consultations Dr. Cid, Cardiology Dr. De Guzman, Cardiology Dr. Simmons, Palliative care Procedures XRay, CTs & MRIs PROCEDURE: X-RAY CHEST ONE VIEW, PORTABLE IMPRESSION: Small left pleural effusion with adjacent atelectasis. Cardiomegaly Dictated by: Nolberto Campbell M.D. on 09/21/2016 at 19:45 Approved by: Nolberto Campbell M.D. on 09/21/2016 at 19:46 PROCEDURE: CT CHEST, ABDOMEN AND PELVIS WITHOUT CONTRAST IMPRESSION: 1. Moderate pleural effusions, intra-abdominal and pelvic ascites, and diffuse anasarca. In the setting of marked cardiomegaly, these findings are suspicious for congestive failure and diffuse fluid overload. 2. The appendix is not definitely visualized; however there are no ancillary findings to suggest acute appendicitis. 3. The gallbladder is grossly normal; however is only partially characterized. If there is clinical suspicion for gallbladder pathology, right upper quadrant ultrasound may be helpful. Dictated by: Cileo Goetz M.D. on 09/22/2016 at 12:47 Approved by: Cielo Goetz M.D. on 09/22/2016 at 12:57 ECG 12 Lead Ventricular pacing (patient has a pacemaker). What appears to be A. fib and flutter. Cardiac Echo Impression PLEASE note the date. DATE OF SERVICE: 04/22/16 1455 Interpretation Summary Afib with RV pacing and controlled ventricular rate. Normal LV size and wall thickness. There is severe global hypokinesis compounded by dyssynchrony. EF is 15-20%. There is severe biatrial enlargement. There is mild - moderate mitral regurgitation. There is mild aortic regurgitation. There is mild tricuspid regurgitation. The right ventricular systolic pressure is estimated at 45 mmHg assuming a right atrial pressure of 15 mm Hg. Compared to prior study 01/03/2013 no significant changes have occurred Brief History Per Admitting Physician: Jordi Reagan MD: 85-year-old patient with her 2 daughters at her bedside. Majority of history is taken from daughters in the patient drifts off to sleep. She is able to engage in direct questioning for a short period of time and is appropriate in her responses. She defers to her daughter Sarah. Patient has a history of atrial fibrillation as well as nonischemic cardiomyopathy. She moved here approximately 3 years ago to be near [facility] with her other daughter Juana living in [place]. The patient was in 2008 and was able to live independently but was having increasing cardiac symptoms as well as chronic pain in her right knee and to some degree her left hip. She has been living independently with the assistance of her family until the last month or so and particularly the last 2 weeks her daughters have been there as 24/7 are caregivers. During a cardiology follow-up visit in mid July she was already quite short of breath with decreased exertional tolerance increased fatigue and sleeping more. She had progressive edema and the decision was to hospitalize her. She has history of chronic atrial fibrillation dating back about 20 years. When she moved to [facility] she was noted to have her significant cardiomyopathy with an EF last checked March 2016 of 15-20%. She had an AICD and pacemaker placed about 3 years ago. This had not discharged until interrogation this evening noting V. fib 09/06 which was successfully treated. Patient is unaware of this events. The patient's 2 daughters indicate that over the past few weeks they have had discussions including with the patient with the decision that they would like to have her home for end of life. The patient indicates that she has long-term care insurance that has already supplied hospital bed shower chair and commode. They have also made plans together with a mortuary in [place]. The patient who brings this up. Her CODE STATUS up until now has been full code but they would like it changed to DO NOT RESUSCITATE and comfort care. 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 Patient is a Yarsani and had always kept involvement with her oriental orthodox. Her was [employer]. After he Sarah mercer at the request of her mother was baptized. The patient notes that oriental orthodox continues to play an important role in her life Hospital Course Lexie Hernandez is an 85 year old female with a history of HFrEF, atrial fibrillation/flutter on Warfarin s/p single lead pacemaker ICD placement who presents to the ED with worsening bilateral leg edema and increased shortness of breath and fatigue for the last week to 2 weeks. Discharged home with comfort care on hospital day 2. # Acute exacerbation of chronic HFrEF, present on admission, ongoing. -Cardiology, Dr Cid and Dr. De Guzman consulted. Palliative care, Dr. Simmons consulted. Decision made to proceed with comfort care. -ICD turned off, tachy therapy disabled, the pacing feature left on. -Continued with torsemide. -Discharged with Morphine, Lorazepam and Haloperidol for comfort to be administered at home by the family. # Supratherapeutic INR. Present on admission, ongoing. -INR was 2.5 on 08/18/16, and no sign of bleed -Etiology is most likely 2/2 recent antibiotic use with no change in warfarin dose -INR of 10 this morning, 10 of vitamin K administered. -No further action will be taken. Patient is on comfort care. # Minimally productive cough, for about a month now. Present on admission. -Unlikely to be bacterial given her presentation, but could consider viral etiology and pro calcitonin to rule out bacterial. --No further action will be taken. Patient is on comfort care. # Abd pain and abnormal LFTs. Present on admission, ongoing. -Present since July, but worsened since then -Given her right upper quadrant pain, concerning for a potential Chiquita/hepatic etiology. --No further action will be taken. Patient is on comfort care. # Anion gap indicative of a potential metabolic acidosis. Present on admission , ongoing. -Elevated creatinine, but without history of chronic kidney disease -Concern for underlying infection as a precipitant for her cardiac exacerbation -No further action will be taken. Patient is on comfort care. # AK I. Present on admission, ongoing. -Elevated creatinine present since July, but worsened since then -Likely related to her acute exacerbation and associated fluid status at this time. -No indication on the UA of an underlying UTI -No further action will be taken. Patient is on comfort care. # Elevated TSH. Present on admission, ongoing. -TSH and free T4 were normal in December 2015 per outpatient record -Concerning for subclinical hypothyroid, or sick thyroid given her acute illness -No further action will be taken. Patient is on comfort care. # Elevated troponin. Present on admission, ongoing. -Likely related to stress given her fluid overload in a reduced EF state -No further action will be taken. Patient is on comfort care. Dispo: Home with comfort care Exam Vital Signs (Last) Date Time Temp Pulse Resp B/P Pulse Ox O2 Delivery O2 Flow Rate FiO2 09/23/16 00:30 CPAP/BIPAP 09/22/16 15:54 66 26 103/62 98 09/22/16 07:57 35.9 Exam General: Thin frail woman laying in bed alert and oriented 3 HEENT: NCAT, PERRL, EOMI.Conjunctiva are not injected , dry mucous membranes Neck: Neck supple, no thyromegaly. Chest & Lungs: Clear to auscultation bilaterally with minimal crackles appreciated in the left lower base Cardiovascular: Regular rate, S1,S2, S3 Abdomen: Mild discomfort noted on palpation of the right abdomen/especially the right upper quadrant Extremities: Significant, 3+ pitting edema noted from the level of the feet up to the abdomen bilaterally. Psych: Normal mood and affect. Thought process and content intact. Test 09/21/16 18:10 09/21/16 19:24 09/22/16 00:22 09/22/16 02:30 White Blood Count 6.5th/mm3 (3.8-10.1) Red Blood Count 5.30mil/mm3 (3.90-5.20) Hemoglobin 15.6g/dL (12.0-15.6) Hematocrit 46.2% (35.0-46.0) Mean Corpuscular Volume 87.2fL (81-100) Mean Corpuscular Hemoglobin 29.4pg (27.0-35.0) Mean Corpuscular Hemoglobin Concent 33.8% (32.0-37.0) Red Cell Distribution Width 15.7% (12.3-15.4) Platelet Count 185bil/L (150-400) Neutrophils (%) (Auto) 71.4% (40-74) Lymphocytes (%) (Auto) 16.2% (14-46) Monocytes (%) (Auto) 9.7% (4-12) Eosinophils (%) (Auto) 2.0% (0-5) Basophils (%) (Auto) 0.5% (0-3) Hemoglobin A1c 7.5% (4.8-5.6) Total Bilirubin 3.3mg/dL (0.0-1.2) Aspartate Amino Transf (AST/SGOT) 81U/L (0-50) Alanine Aminotransferase (ALT/SGPT) 121U/L (0-32) Alkaline Phosphatase 114U/L (25-165) Pro-B-Type Natriuretic Peptide 42260wj/mL (0-738) Total Protein 6.9g/dL (6.4-8.4) Albumin 3.9g/dL (3.4-5.0) Thyroid Stimulating Hormone (TSH) 11.890uIU/mL (0.450-4.500) Hold Mckeon Top Tube Received (Received) Urine Color Yellow (YELLOW) Urine Appearance Clear (CLEAR,HAZY) Urine pH 5.0 (5.0-8.0) Urine Specific [place] 1.025 (1.003-1.035) Urine Protein Negativemg/dL (NEG,TRACE) Urine Glucose (UA) Negativemg/dL (NEGATIVE) Urine Ketones Negativemg/dL (NEGATIVE) Urine Occult Blood Negative (NEGATIVE) Urine Nitrite Negative (NEGATIVE) Urine Bilirubin Negative (NEGATIVE) Urine Urobilinogen Normalmg/dL (NORMAL) Urine Leukocyte Esterase Negative (NEGATIVE) Urine RBC 0-2/hpf (0-2) Urine WBC 0-5/hpf (0-5) Urine Epithelial Cells None/hpf (NONE-MOD) Urine Crystals None seen (NONE SEEN) Urine Bacteria Few/hpf (NONE-FEW) Urine Hyaline Casts None/lpf (NONE) Urine Granular Casts None seen (NONE SEEN) Urine Waxy Casts None seen (NONE SEEN) Urine Red Blood Cell Casts None seen (NONE SEEN) Urine White Blood Cell Casts None seen (NONE SEEN) Urine Mucus None seen (None Seen) Urine Trichomonas None seen (NONE SEEN) Urine Yeast None (NONE SEEN) Urinalysis Comment None Urine Culture Reflexed Not indicated Lactic Acid Level 5.1mmol/L (0.4-2.0) Procalcitonin 0.14ng/mL (0.00-0.08) Free Thyroxine 1.51ng/dL (0.82-1.77) Digoxin Level 1.6nG/mL (0.9-2.0) Sodium Level 134mEq/L (134-144) Potassium Level 4.0mEq/L (3.5-5.2) Chloride Level 91mEq/L (97-108) Carbon Dioxide Level 20mmol/L (18-29) Blood Urea Nitrogen 76mg/dL (8-27) Creatinine 2.21mg/dL (0.57-1.00) Estimat Glomerular Filtration Rate 30mL/min (>59) Glucose Level 131mg/dL (60-99) Calcium Level 10.2mg/dL (8.5-10.1) Total Creatine Kinase 87U/L (21-215) Creatine Kinase MB 6.4ng/mL (0.0-5.3) Creatine Kinase MB % 7.4% (0.0-5.0) Troponin T 0.141ug/L (0.0-0.011) Triglycerides Level 96mg/dL (0-149) Cholesterol Level 153mg/dL (100-199) LDL Cholesterol, Calculated 111.800mg/dL (0-99) VLDL Cholesterol 19.200mg/dL HDL Cholesterol 22mg/dL (>39) Cholesterol/HDL Ratio 6.95 (0.0-4.4) Test 09/22/16 10:55 Prothrombin Time > 120.0sec (8.1-12.5) Prothromb Time International Ratio > 10.00ratio Discharge Medications Discharge Medications Torsemide (Torsemide) 20 Mg Tablet 40 MG PO DAILY (Reported) Additional med instructions These are the comfort medications: - Morphine Sulfate concentrate, 20 mg/ml 30 cc bottle -Dose: 5-10 mg (1/4 -1/2 cc) slow by mouth every 1 hour as needed for pain - Lorazepam 2 mg/ml, 30 cc bottle -Dose: 1.5-1 mg slow by mouth every 2 hours as needed for anxiety - Haloperidol, 1mg -Dose: 1 mg sublingual/mouth every 6 hours as needed for nausea Secretions: - Transderm scop patch - not usually recommended d/t short time frame and side effects. Prefer to use morphine. Followup Plan Discharge Diet: No restrictions Discharge Activity: No restrictions Attending Statement The patient was seen and examined together with Dr. Dutton on 09/23/16 and I agree with the history, exam and plan as outlined in the note above. copies to: Kurtis Brand MD, Oksana S DO Sep 23, 2016 15:09 Bri Moreno DO Sep 24, 2016 15:42
--- NOTE | 2016-09-23 18:25 | NUR ---
spiritual care: pt request caring visit, conversation with pt's dts who spoke clearly with pt about plans for comfort and peaceful . Pt engaged somewhat in reflections, scripture reading, prayer.
--- NOTE | 2016-09-24 14:59 | NUR ---
Palliative care note D/A: Follow up phone call placed to pt dtr Sraah Gray at home phone ( [phone]). Discussed at length that pt was comfortable and family was using medications as prescribed. Family continues to feel that pt is doing well and comfortable under their care. Family is reminded to adjust medications per symptoms, per discussion with Dr. Simmons. P: No further need for palliative care to follow. Sherice DURAN, CCM
== END 2016-09-23 12:36 | disposition home or self-care (01) | DRG 292 ==
LOC: SED 17:23 → MPC 19:57
PROVIDERS: ADMIT Hospitalist; ATTEND Hospitalist
DX: I50.23 Acute on chronic systolic (congestive) heart failure (principal); E87.1 Hypo-osmolality and hyponatremia; N17.9 Acute kidney failure, unspecified; I42.9 Cardiomyopathy, unspecified; I48.2 Chronic atrial fibrillation; Z79.01 Long term (current) use of anticoagulants; E78.5 Hyperlipidemia, unspecified; J44.9 Chronic obstructive pulmonary disease, unspecified; Z95.0 Presence of cardiac pacemaker; G47.33 Obstructive sleep apnea (adult) (pediatric); I51.7 Cardiomegaly; Z51.5 Encounter for palliative care; R94.5 Abnormal results of liver function studies; R10.11 Right upper quadrant pain